=== PATIENT | female | born 1950 | race Caucasian/White ===

== ENCOUNTER 2021-05-16 19:44 | Inpatient (IN) | payer MEDICARE, OTHER, SELFPAY ==
--- NOTE | ~2021-05-16 | XR_ITS ---
EXAMINATION: XR CHEST CLINICAL INFORMATION: Altered mental status COMPARISON: 09/20/2019 TECHNIQUE: Frontal view of the chest was obtained. FINDINGS: Low lung volumes and portable technique crowd the bronchovascular markings. No discrete consolidation. No pleural effusion or pneumothorax. Normal heart size and pulmonary vascularity. No acute or suspicious osseous abnormalities. XR/XR chest 1V IMPRESSION: No infiltrate or focal consolidation
--- NOTE | ~2021-05-16 | MR_ITS ---
EXAMINATION: MR BRAIN WITHOUT CONTRAST CLINICAL INFORMATION: Frontotemporal dementia. COMPARISON: Brain MRI from 06/20/2019. TECHNIQUE: MRI of the brain was obtained using routine sequences without contrast. FINDINGS: No focal restricted diffusion is demonstrated to suggest acute or subacute cerebral ischemia. No evidence of acute or chronic hemorrhagic products on heme-sensitive imaging. Scattered periventricular and deep white matter T2 FLAIR hyperintensities consistent with mild underlying microangiopathy. Proportional prominence of the ventricles and sulcal spaces without evidence of obstructive hydrocephalus. Volume loss again qualitatively involves the frontal and temporal lobes more so than the occipitoparietal lobes. No abnormal mass effect. No midline shift. Normal appearance of the pituitary gland. No abnormalities of the posterior fossa with normal appearance of the brainstem and cerebellum. Normal positioning of the cerebellar tonsils. Normal arterial and venous vascular flow voids are present. Normal, homogeneous marrow signal. Degenerative spondyloarthropathy of the visualized upper cervical spine. Mild mucosal thickening of the paranasal sinuses. No signal abnormalities within the mastoids. MR/MR head/brain wo con IMPRESSION: 1. No acute intracranial abnormalities. 2. Mild underlying microangiopathy. 3. Generalized cerebral volume loss again qualitatively involves the frontal and temporal lobes more so than the occipitoparietal lobes. If clinically indicated, this could be qualitatively characterized/followed with dedicated Neuro[employer] imaging.
[2021-05-16 19:47] VITALS: BP 131/67; PULSE 88; RESP 19; TEMP 36.6; O2SAT 96; BMI 29.2
--- NOTE | 2021-05-16 21:15 | ECG_ITS ---
Test Reason : HEADACHE Blood Pressure : / mmHG Vent. Rate : 078 BPM Atrial Rate : 078 BPM P-R Int : 136 ms QRS Dur : 144 ms QT Int : 438 ms P-R-T Axes : 065 082 025 degrees QTc Int : 499 ms Normal sinus rhythm Right bundle branch block Abnormal ECG When compared with ECG of 18-OCT-2017 08:16, T wave inversion now evident in Inferior leads QT has lengthened Referred By: Chelo Carvajal Electronically Signed By:BOBBY AVENDAÑO
--- NOTE | 2021-05-16 21:28 | PC.NURSE ---
IV established, all labs obtained. automotive specialty technician at bedside for EKG and second set of BCX. Daughter at bedside, awaiting primary MD toribio. VSS.
[2021-05-16 21:29] VITALS: BP 116/47; PULSE 80; RESP 20
[2021-05-16 21:35] LABS: MANUAL DIFF FLAG NO
[2021-05-16 21:36] LABS: Basophils Percent Auto 0.3 % (0-2); Eosinophils Absolute Auto 0.1 X10*3/uL (0.0-0.4); Eosinophils Percent Auto 1.1 % (0-4); Hematocrit 39.9 % (37-47); Hemoglobin 13.7 g/dl (12.0-16.0); Imm Gran Abs Auto 0.04 X10*3/uL (0.00-0.03); Imm Gran Pct Auto 0.3 % (0.0-0.4); Lymphocytes Absolute Auto 2.7 X10*3/uL (1.2-4.9); Lymphocytes Percent Auto 22.2 % (20-40); Mean Corpuscular HGB Conc 34.3 g/dl (31.0-35.0); Mean Corpuscular Volume 84.5 fL (80-98); Mean Platelet Volume 9.3 fL (9.4-12.3); Monocytes Absolute Auto 0.8 X10*3/uL (0.1-1.2); Monocytes Percent Auto 6.8 % (2-11); Neutrophils Absolute Auto 8.3 X10*3/uL (2.0-8.3); Neutrophils Percent Auto 69.3 % (45-73); Platelet Count 193 X10*3/uL (160-400); Red Blood Count 4.72 X10*6/uL (4.20-5.50); Red Cell Distribution Width 14.4 % (11.0-16.0)
[2021-05-16 21:37] LABS: Glucose Urine UA NEG (NEG); Leukocyte Esterase Urine 2+ (NEG); Nitrite Urine NEG (NEG); Specific Gravity - Urine 1.025 (1.005-1.025); UACC Culture Trigger YES; Urine Blood TRACE (NEG); Urine Ketones NEG (NEG); Urine Protein 2+ MG/DL (NEG-TRACE)
[2021-05-16 21:38] LABS: Appearance Urine HAZY; Color Urine YELLOW
[2021-05-16 21:44] LABS: Bacteria Urine 2+ /LPF; RBC Urine 0-2 /HPF (0); Squamous Epithelial Cell Urine 3+ /LPF
[2021-05-16 21:45] LABS: INTERNATIONAL NORM RATIO 1.2 (0.9-1.1); Prothrombin Time 13.2 SEC (9.9-13.0)
[2021-05-16 21:54] LABS: Lactic Acid 1.6 mmol/L (0.5-2.0)
[2021-05-16 21:55] VITALS: BP 140/70; PULSE 80; RESP 22; O2SAT 94
[2021-05-16 22:01] LABS: Alanine Aminotransferase 67 U/L (0-31); Albumin Level 4.6 g/dL (3.5-5.0); Alkaline Phosphatase 120 U/L (39-117); Anion Gap 18 (12-20); Aspartate Amino Transferase 82 U/L (5-31); Bilirubin Total 0.9 mg/dL (0.0-1.0); Blood Urea Nitrogen 14 mg/dL (9-16); Calcium 10.1 mg/dL (8.4-10.2); Carbon Dioxide 23 mmol/L (22-29); Chloride 101 mmol/L (96-108); Creatinine Clr Calc Pharmacy 59.5; Estimated Glomerular Filt Rate > 60; Glucose Random 181 mg/dL (60-115); Potassium 4.3 mmol/L (3.3-5.1); Sodium 138 mmol/L (135-145)
--- NOTE | 2021-05-16 22:13 | ED.PSYCH ---
HPI - Psych General Chief Complaint: Altered Mental Status Stated Complaint: change in mental status Time Seen by Provider: 05/16/21 21:15 Source: patient and family (Daughter) Mode of arrival: ambulatory History of Present Illness HPI Narrative: 71-year-old female with history of schizophrenia is brought in by her family for onset of auditory hallucinations that have been ongoing and worsening over the past week. Patient denies any suicidal homicidal ideation and states that this has happened before. She states that there have been no recent medication changes since January and at that time amitriptyline have been added for pain. Otherwise, patient states that the voices are not telling her to kill herself, however in discussion with the daughter at bedside the event that prompted them to bring patent the patient in is that she had driven over to her daughter's house because she had thought the neighbor had her daughter tied up and was holding her hostage. This followed an incident last night where she called 911 because the neighbor had told her that her was having a heart attack and laying on the floor. She denies any visual hallucinations and denies any recent fever, chills, GI or symptoms and states that she has been eating and drinking normally as well as denying any shortness of breath or chest pain/palpitations. Related Data Allergies Allergy/AdvReac Type Severity Reaction Status Date / Time dicyclomine [From Bentyl] Allergy Mild 5 BLUE Verified 05/16/21 19:46 LINES ACROSS ABDOMEN prochlorperazine Allergy Mild TONGUE Verified 05/16/21 19:46 [From Compazine] SWELL, LOCK JAW Sulfa (Sulfonamide Allergy Mild RASH, hives Verified 05/16/21 19:46 Antibiotics) Compazine Allergy Unknown oral Verified 05/16/21 19:46 swelling shellfish Allergy Unknown diarrhea, Verified 05/16/21 19:46 abd pain Shellfish Allergy Mild DIARRHEA,SW Uncoded 06/04/20 15:05 TOI Review of Systems Review of Systems: Pertinent positives and negatives As stated in HPI 10 point review of systems is otherwise negative. PMFSH Past Medical History Source: nursing notes reviewed Medical History Anxiety Depression High cholesterol Hypertension Hypothyroid Surgical History H/O neck surgery Previous back surgery S/P appendectomy Social History Social History Advance Directives: No Advance Directives Information Provided: No Physical Exam Vital Signs: Vital Signs: Last Vital Signs Temp 97.8 F 05/16/21 19:47 Pulse 80 05/16/21 21:55 Resp 22 H 05/16/21 21:55 BP 140/70 H 05/16/21 21:55 Pulse Ox 94 05/16/21 21:55 Body Mass Index 29.2 VITAL SIGNS: Reviewed. GENERAL: Well developed, well nourished, in no acute distress. HEAD: Normocephalic/atraumatic EYES: PERRLA, EOMI OROPHARYNX: no oral lesions noted, posterior pharynx clear LUNGS: Normal breath sounds. No adventitious sounds or accessory muscle use. SpO2<94> CARDIOVASCULAR: Regular rate and rhythm without noted murmurs, no JVD or lower extremity edema. ABDOMEN: Soft, non-tender, non-distended with bowel sounds. MUSCULOSKELETAL: No tenderness, deformities, or effusions noted on gross inspection. EXTREMITIES: No cyanosis, clubbing or edema. SKIN: Inspection of the skin reveals no rashe NEUROLOGIC: Alert and oriented x 4. Strength and sensation to light touch were grossly intact x 4. PSYCH: Normal affect, not anxious, logical thought process Course Course Course Narrative: This is a 71-year-old female with history and clinical presentation most consistent with decompensated schizophrenia with auditory hallucinations and although I doubt infection or metabolic/medication interaction will evaluate for this and after these have been assessed will consult care team for further evaluation. Review of all investigations significant for UTI and patient received antibiotics and will be evaluated by the care team, but they state patient needs to be treated for 24 hours to appropriately assess for contribution of the infection to patient's auditory hallucinations. Patient and family have been informed of all findings and plan. Reevaluation(s) Reevaluation #1: Patient placed in physician observation because the patient needed more time for CARE team evaluation At the time observation was started the patient's vital signs were stable, patient is alert and oriented, neuro: Nonfocal, CV RRR, lungs clear Time: 22:48 MDM - Psych Lab Data Result diagrams: 05/16/21 21:24 05/16/21 21:24 Labs: Lab Results 0805/16/21 05/16/21 Range/Units 21:24 21:24 21:24 WBC 12.0 H (4.8-10.8) X10*3/uL RBC 4.72 (4.20-5.50) X10*6/uL Hgb 13.7 (12.0-16.0) g/dl Hct 39.9 (37-47) % MCV 84.5 (80-98) fL MCH 29.0 (27.0-33.0) pg MCHC 34.3 (31.0-35.0) g/dl RDW 14.4 (11.0-16.0) % Plt Count 193 (160-400) X10*3/uL MPV 9.3 L (9.4-12.3) fL Immature Gran % (Auto) 0.3 (0.0-0.4) % Neut % (Auto) 69.3 (45-73) % Lymph % (Auto) 22.2 (20-40) % [place] % (Auto) 6.8 (2-11) % Eos % (Auto) 1.1 (0-4) % Baso % (Auto) 0.3 (0-2) % Lymph # (Auto) 2.7 (1.2-4.9) X10*3/uL [place] # (Auto) 0.8 (0.1-1.2) X10*3/uL Eos # (Auto) 0.1 (0.0-0.4) X10*3/uL Baso # (Auto) 0.0 (0.0-0.2) X10*3/uL Abs Immat Gran (auto) 0.04 H (0.00-0.03) X10*3/uL Absolute Neuts (auto) 8.3 (2.0-8.3) X10*3/uL Absolute Nucleated RBC 0.000 (0.0-0.012) X10*3/uL Nucleated RBC % (auto) 0.0 (0.0-0.2) /100WBC PT (9.9-13.0) SEC INR (0.9-1.1) Sodium 138 (135-145) mmol/L Potassium 4.3 (3.3-5.1) mmol/L Chloride 101 (96-108) mmol/L Carbon Dioxide 23 (22-29) mmol/L Anion Gap 18 (12-20) BUN 14 (9-16) mg/dL Creatinine 0.84 (0.5-1.4) mg/dL Estim Creat Clear Calc 59.5 Estimated GFR > 60 Random Glucose 181 H (60-115) mg/dL Lactic Acid (0.5-2.0) mmol/L Calcium 10.1 (8.4-10.2) mg/dL Total Bilirubin 0.9 (0.0-1.0) mg/dL AST 82 H (5-31) U/L ALT 67 H (0-31) U/L Alkaline Phosphatase 120 H (39-117) U/L Total Protein 8.0 (6.5-8.0) g/dL Albumin 4.6 (3.5-5.0) g/dL Urine Color YELLOW Urine Appearance HAZY Urine pH 6.0 (5.0-8.0) Ur Specific [place] 1.025 (1.005-1.025) Urine Protein 2+ H (NEG-TRACE) MG/DL Urine Glucose (UA) NEG (NEG) MG/DL Urine Ketones NEG (NEG) MG/DL Urine Blood TRACE (NEG) Urine Nitrite NEG (NEG) Ur Leukocyte Esterase 2+ H (NEG) Urine RBC 0-2 (0) /HPF Urine WBC 15-29 H (0-4) /HPF Ur Squamous Epith Cells 3+ /LPF Urine Bacteria 2+ /LPF COVID-19 (ANTIONETTE) (Negative) COVID-19 Clin Com 05/16/21 05/16/21 05/16/21 Range/Units 21:24 21:24 22:46 WBC (4.8-10.8) X10*3/uL RBC (4.20-5.50) X10*6/uL Hgb (12.0-16.0) g/dl Hct (37-47) % MCV (80-98) fL MCH (27.0-33.0) pg MCHC (31.0-35.0) g/dl RDW (11.0-16.0) % Plt Count (160-400) X10*3/uL MPV (9.4-12.3) fL Immature Gran % (Auto) (0.0-0.4) % Neut % (Auto) (45-73) % Lymph % (Auto) (20-40) % [place] % (Auto) (2-11) % Eos % (Auto) (0-4) % Baso % (Auto) (0-2) % Lymph # (Auto) (1.2-4.9) X10*3/uL [place] # (Auto) (0.1-1.2) X10*3/uL Eos # (Auto) (0.0-0.4) X10*3/uL Baso # (Auto) (0.0-0.2) X10*3/uL Abs Immat Gran (auto) (0.00-0.03) X10*3/uL Absolute Neuts (auto) (2.0-8.3) X10*3/uL Absolute Nucleated RBC (0.0-0.012) X10*3/uL Nucleated RBC % (auto) (0.0-0.2) /100WBC PT 13.2 H (9.9-13.0) SEC INR 1.2 H (0.9-1.1) Sodium (135-145) mmol/L Potassium (3.3-5.1) mmol/L Chloride (96-108) mmol/L Carbon Dioxide (22-29) mmol/L Anion Gap (12-20) BUN (9-16) mg/dL Creatinine (0.5-1.4) mg/dL Estim Creat Clear Calc Estimated GFR Random Glucose (60-115) mg/dL Lactic Acid 1.6 (0.5-2.0) mmol/L Calcium (8.4-10.2) mg/dL Total Bilirubin (0.0-1.0) mg/dL AST (5-31) U/L ALT (0-31) U/L Alkaline Phosphatase (39-117) U/L Total Protein (6.5-8.0) g/dL Albumin (3.5-5.0) g/dL Urine Color Urine Appearance Urine pH (5.0-8.0) Ur Specific [place] (1.005-1.025) Urine Protein (NEG-TRACE) MG/DL Urine Glucose (UA) (NEG) MG/DL Urine Ketones (NEG) MG/DL Urine Blood (NEG) Urine Nitrite (NEG) Ur Leukocyte Esterase (NEG) Urine RBC (0) /HPF Urine WBC (0-4) /HPF Ur Squamous Epith Cells /LPF Urine Bacteria /LPF COVID-19 (ANTIONETTE) Negative (Negative) COVID-19 Clin Com See Note ECG Data Attestation: I personally reviewed and interpreted this ECG as follows: Prior ECG tracings: available for review (10/18/2017 no acute changes on comparison) Interpretation: Normal sinus rhythm, HR-78, RBBB, no STEMI, AR/QT are within normal limits. Discharge Plan Discharge Clinical Impression: Schizophrenia, Psychosis, Acute UTI
[2021-05-16] MEDS: cephALEXin 500 MG CAPSULE PO (22:44)
--- NOTE | 2021-05-16 22:46 | PC.NURSE ---
Pt medicated per NOV. Covid swab obtained. Pt ambulating to the bathroom with a steady gait.
[2021-05-16 23:04] LABS: COVID-19 Test Negative (Negative)
--- NOTE | 2021-05-16 23:31 | MHC.CARE ---
CARE team consult received for 71 year old female who was brought to ED by family for a psychiatric eval. She endorsed experiencing auditory hallucinations, denied them being persecutory or command in nature, and reported that lots of craziness happened earlier in the day before arriving to the ED. Per family report she has been experiencing paranoid delusions about her neighbors, more notably over the past week or so. Her stated that he is concerned about her current presentation and is hoping that she'll be admitted for treatment. 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 She stated that she began amitriptyline in early January, there have been no other recent changes in her medications, and she is compliant with taking them as prescribed. She lives with her and their daughter is close by and involved. Pt and her requested that her outpatient psychiatrist, Amanda Farias, be contacted re: her ED presentation. 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 Anthony Farias, who reported that she is out of the office until after and to consult with Dr. Tyron Root if there are any questions or additional information needed. Pt has a UTI and has been started on cephalexin. She is not medically cleared for evaluation at this time. Psych consult has been requested for clinical impression and recommendation. Pt and her are aware of the plan of care.
[2021-05-17] VITALS (8 sets, daily range): BP systolic 118–159; BP diastolic 59–79; PULSE 81–93; RESP 16–20; TEMP 37.1–37.4; O2SAT 95–96
[2021-05-17] MEDS: amLODIPine Besylate 5 MG TABLET PO (08:00)
[2021-05-17] MEDS: Ezetimibe 10 MG TABLET PO (08:00)
[2021-05-17] MEDS: buPROPion HCl XL 150 MG TAB.ER.24H PO (08:01)
[2021-05-17] MEDS: Loratadine 10 MG TABLET PO (08:01)
[2021-05-17] MEDS: cephALEXin 500 MG CAPSULE PO ×2 (08:01→20:18)
[2021-05-17] MEDS: PARoxetine HCL 20 MG TABLET PO (08:02)
[2021-05-17] MEDS: Levothyroxine Sodium 175 MCG TABLET PO (08:02)
[2021-05-17] MEDS: atenoloL 100 MG TABLET PO (08:02)
[2021-05-17] MEDS: Pravastatin Sodium 80 MG TABLET PO (08:02)
--- NOTE | 2021-05-17 09:42 | P.CNPS_ITS ---
History of Present Illness Date of Service: 05/17/21 Chief Complaint: change in mental status Reason for Consult: diagnosis Sources of Information: chart reviewed and crisis/core team assessment reviewed HPI Narrative: h/o depression with psychotic Fx. BIB family to ED for recent uptick in psychotic Sx. UTI diagnosed. per collateral from care team, pt's family have noted neurovegetative Sx of depression and increased psychotic Sx for at least the past month, predating the start of UTI. Past Psychiatric History: MDD with psychotic Fx Medical Evaluation Reviewed: Yes [facility] Medical History (Updated 05/17/21 @ 09:45 by Tmi Lindo) Anxiety Depression High cholesterol Hypertension Hypothyroid Schizophrenia Surgical History H/O neck surgery Previous back surgery S/P appendectomy Diagnostics Vital Signs (24Hr): Vital Signs - 24 hr 05/16/21 19:47 05/16/21 21:29 05/16/21 21:55 Temperature 97.8 F Pulse Rate 88 80 80 Respiratory Rate 19 20 22 H Blood Pressure 131/67 116/47 L 140/70 H Pulse Oximetry 96 94 05/17/21 00:00 05/17/21 02:19 05/17/21 04:33 Temperature Pulse Rate Respiratory Rate 20 16 16 Blood Pressure Pulse Oximetry 05/17/21 05:46 05/17/21 08:00 05/17/21 08:02 Temperature Pulse Rate 93 90 Respiratory Rate 20 Blood Pressure 159/79 H 159/79 H Pulse Oximetry Body Mass Index 29.2 Labs Results: 05/16/21 21:24 05/16/21 21:24 Labs: Laboratory Results - last 48 hr 05/16/21 05/16/21 05/16/21 21:24 21:24 21:24 WBC 12.0 H RBC 4.72 Hgb 13.7 Hct 39.9 MCV 84.5 MCH 29.0 MCHC 34.3 RDW 14.4 Plt Count 193 MPV 9.3 L Immature Gran % (Auto) 0.3 Neut % (Auto) 69.3 Lymph % (Auto) 22.2 [place] % (Auto) 6.8 Eos % (Auto) 1.1 Baso % (Auto) 0.3 Lymph # (Auto) 2.7 [place] # (Auto) 0.8 Eos # (Auto) 0.1 Baso # (Auto) 0.0 Abs Immat Gran (auto) 0.04 H Absolute Neuts (auto) 8.3 Absolute Nucleated RBC 0.000 Nucleated RBC % (auto) 0.0 PT INR Sodium 138 Potassium 4.3 Chloride 101 Carbon Dioxide 23 Anion Gap 18 BUN 14 Creatinine 0.84 Estim Creat Clear Calc 59.5 Estimated GFR > 60 Random Glucose 181 H Lactic Acid Calcium 10.1 Total Bilirubin 0.9 AST 82 H ALT 67 H Alkaline Phosphatase 120 H Total Protein 8.0 Albumin 4.6 Urine Color YELLOW Urine Appearance HAZY Urine pH 6.0 Ur Specific [place] 1.025 Urine Protein 2+ H Urine Glucose (UA) NEG Urine Ketones NEG Urine Blood TRACE Urine Nitrite NEG Ur Leukocyte Esterase 2+ H Urine RBC 0-2 Urine WBC 15-29 H Ur Squamous Epith Cells 3+ Urine Bacteria 2+ COVID-19 (ANTIONETTE) COVID-19 REBIScan 05/16/21 05/16/21 05/16/21 21:24 21:24 22:46 WBC RBC Hgb Hct MCV MCH MCHC RDW Plt Count MPV Immature Gran % (Auto) Neut % (Auto) Lymph % (Auto) [place] % (Auto) Eos % (Auto) Baso % (Auto) Lymph # (Auto) [place] # (Auto) Eos # (Auto) Baso # (Auto) Abs Immat Gran (auto) Absolute Neuts (auto) Absolute Nucleated RBC Nucleated RBC % (auto) PT 13.2 H INR 1.2 H Sodium Potassium Chloride Carbon Dioxide Anion Gap BUN Creatinine Estim Creat Clear Calc Estimated GFR Random Glucose Lactic Acid 1.6 Calcium Total Bilirubin AST ALT Alkaline Phosphatase Total Protein Albumin Urine Color Urine Appearance Urine pH Ur Specific [place] Urine Protein Urine Glucose (UA) Urine Ketones Urine Blood Urine Nitrite Ur Leukocyte Esterase Urine RBC Urine WBC Ur Squamous Epith Cells Urine Bacteria COVID-19 (ANTIONETTE) Negative COVID-19 [email or web address] Com See Note Imaging Radiology Impressions: ITS Impressions Chest X-Ray 05/16/21 21:15 IMPRESSION: No infiltrate or focal consolidation Medications Medications Current Medications Generic Name Dose Route Start Last Admin Trade Name Freq PRN Reason Stop Dose Admin Amitriptyline HCl 25 mg 05/17/21 21:00 Amitriptyline Hcl 25 Mg Tablet PO BEDTIME BRIA Amlodipine Besylate 5 mg 05/17/21 09:00 05/17/21 08:00 Amlodipine Besylate 5 Mg Tablet PO 5 mg DAILY BRIA Administration Protocol Atenolol 100 mg 05/17/21 09:00 05/17/21 08:02 Atenolol 100 Mg Tablet PO 100 mg DAILY BRIA Administration Protocol Bupropion HCl 150 mg 05/17/21 09:00 05/17/21 08:01 Bupropion Hcl Xl 150 Mg Tab.Er.24h PO 150 mg DAILY BRIA Administration Cephalexin HCl 500 mg 05/17/21 09:00 05/17/21 08:01 Cephalexin 500 Mg Capsule PO 05/22/21 08:59 500 mg Q12H BRIA Administration Clonazepam 1 mg 05/17/21 07:00 Clonazepam 1 Mg Tablet PO TID PRN anxiety Ezetimibe 10 mg 05/17/21 09:00 05/17/21 08:00 Ezetimibe 10 Mg Tablet PO 10 mg DAILY BRIA Administration Levothyroxine Sodium 175 mcg 05/17/21 09:00 05/17/21 08:02 Levothyroxine Sodium 175 Mcg Tablet PO 175 mcg DAILY BRIA Administration Loratadine 10 mg 05/17/21 09:00 05/17/21 08:01 Loratadine 10 Mg Tablet PO 10 mg DAILY BRIA Administration Non-Formulary Medication 1 appl 05/17/21 09:00 Diclofenac Sodium TOPICAL BID [facility] Paroxetine HCl 20 mg 05/17/21 09:00 05/17/21 08:02 Paroxetine Hcl 20 Mg Tablet PO 20 mg DAILY BRIA Administration Pravastatin Sodium 80 mg 05/17/21 09:00 05/17/21 08:02 Pravastatin Sodium 80 Mg Tablet PO 80 mg DAILY BRIA Administration Allergies Allergies Allergy/AdvReac Type Severity Reaction Status Date / Time dicyclomine [From Bentyl] Allergy Mild 5 BLUE Verified 05/16/21 19:46 LINES ACROSS ABDOMEN prochlorperazine Allergy Mild TONGUE Verified 05/16/21 19:46 [From Compazine] SWELL, LOCK JAW Sulfa (Sulfonamide Allergy Mild RASH, hives Verified 05/16/21 19:46 Antibiotics) Compazine Allergy Unknown oral Verified 05/16/21 19:46 swelling shellfish Allergy Unknown diarrhea, Verified 05/16/21 19:46 abd pain Shellfish Allergy Mild DIARRHEA,SW Uncoded 06/04/20 15:05 TOI Assessment & Plan Assessment & Plan (1) Depression: Status: Acute Code(s): F32.9 - Major depressive disorder, single episode, unspecified Assessment and Plan: with psychotic Fx. continue current mgmt with anti-depressants. would start low-dose neuroleptic such as haldol 2 BID if pt will not be moved to an inpatient psych unit in the near future. (2) Psychosis: Status: Acute Code(s): F29 - Unspecified psychosis not due to a substance or known physiological condition Assessment and Plan: see above. this is an aspect of a known diagnosis of MDD with psychotic Fx, possibly exacerbated by UTI. (3) Acute UTI: Status: Acute Code(s): N39.0 - Urinary tract infection, site not specified Assessment and Plan: treat as directed by ED physician Assessment and Plan: admit to inpatient psych unit. treat infection. start haldol 2 BID unless pt is to be admitted to psych unit sometime this morning. Greater than 50% of the session was spent on counseling and/or coordination of care
--- NOTE | 2021-05-17 15:16 | MHC.CARE ---
Pt is a CARE Team Older Adult bed search at this time. Bed search exhuasted for today
[2021-05-17] MEDS: Amitriptyline HCl 25 MG TABLET PO (20:18)
[2021-05-18] MEDS: Acetaminophen 325 MG TABLET 650 MG PO ×3 (00:23→21:48)
[2021-05-18] MEDS: clonazePAM 1 MG TABLET PO ×3 (03:06→21:49)
--- NOTE | 2021-05-18 06:37 | PC.NURSE ---
Patient slept through the night, patient was up x 2 briefly, once for right hip pain/administered Tylenol 650 mg with + effect, patient seems mildly anxious/restless/PRN Klonopin 1mg administered as ordered with good effect, patient currently sleeping, no distress observed/reported, behavior appropriate, VSS, Patient + for UTI/Keflex order in placed, compliant with medication, disposition per care team section 12 inpatient bed search, will continue to monitor.
[2021-05-18 08:57] VITALS: BP 162/89; PULSE 95; RESP 16; TEMP 36.7; O2SAT 94
[2021-05-18 09:19] VITALS: BP 162/89; PULSE 95
[2021-05-18] MEDS: Ezetimibe 10 MG TABLET PO (09:19)
[2021-05-18] MEDS: atenoloL 100 MG TABLET PO (09:19)
[2021-05-18] MEDS: amLODIPine Besylate 5 MG TABLET PO (09:19)
[2021-05-18] MEDS: buPROPion HCl XL 150 MG TAB.ER.24H PO (09:19)
[2021-05-18] MEDS: Loratadine 10 MG TABLET PO (09:19)
[2021-05-18] MEDS: PARoxetine HCL 20 MG TABLET PO (09:19)
[2021-05-18] MEDS: Pravastatin Sodium 80 MG TABLET PO (09:19)
[2021-05-18] MEDS: cephALEXin 500 MG CAPSULE PO ×2 (09:19→20:31)
[2021-05-18] MEDS: Levothyroxine Sodium 175 MCG TABLET PO (09:19)
--- NOTE | 2021-05-18 14:08 | MHC.CARE ---
CARE Team meets with patient to present CV. Pt is somewhat reluctant to sign, as she states that she is feeling much better. Pt denies SI/HI and AVH. She is alert and oriented x4, and appears to understand the CV. She is well engaged and friendly, speaking about her cats and solomon. She identifies that having sleep and rest has improved her mental state, and she has insight that she was experiencing increased symptoms when she first arrived to the ED. Pt initially presented to the ED with a UTI, and has been treated with antibiotics. She agrees to sign the CV, but expresses that she does not feel that she needs more then a few days admission to S1. CARE Team will communicate with attending on S1.
[2021-05-18] MEDS: Amitriptyline HCl 25 MG TABLET PO (20:31)
[2021-05-18 20:37] VITALS: BP 148/70; PULSE 79; RESP 16; O2SAT 93
[2021-05-18 21:42] VITALS: BMI 31.1
--- NOTE | 2021-05-19 02:04 | PC.NURSE ---
71 year old female arrived on unit from the ED after displaying signs of depression with psychotic features at home. CAOx4, calm, cooperative, and pleasant. PT is currently being treated for UTI. PT admits that her thoughts and behaviors prior to coming to the hospital were inappropriate, but stated they seemed very relevant to her at the time. PT currently denies any paranoid or fearful thoughts. Denies AV/VH. Denies feelings of depression, SI, or HI. PT believes that her depression is well managed at home at this time and the medications she is taking are effective. PT complaining of chronic back pain due to neck and back surgeries in the past. PT also stated that she has been diagnosed with sleep apnea but does not use her CPAP machine because her cat will attack the tubing during use at night. PT was anxious about being in the hospital for an extended period of time and the bills that would follow. PT has strong support system at home with .
[2021-05-19] MEDS: Acetaminophen 325 MG TABLET 650 MG PO ×3 (04:52→18:46)
[2021-05-19 06:00] VITALS: BP 137/82; PULSE 90; RESP 18; TEMP 36.6; O2SAT 93
[2021-05-19] MEDS: Ezetimibe 10 MG TABLET PO (08:27)
[2021-05-19] MEDS: Levothyroxine Sodium 175 MCG TABLET PO (08:27)
[2021-05-19 08:28] VITALS: BP 118/64; PULSE 96
[2021-05-19] MEDS: PARoxetine HCL 20 MG TABLET PO (08:28)
[2021-05-19] MEDS: Loratadine 10 MG TABLET PO (08:28)
[2021-05-19] MEDS: Pravastatin Sodium 80 MG TABLET PO (08:28)
[2021-05-19] MEDS: buPROPion HCl XL 150 MG TAB.ER.24H PO (08:28)
[2021-05-19] MEDS: atenoloL 100 MG TABLET PO (08:28)
[2021-05-19] MEDS: cephALEXin 500 MG CAPSULE PO ×2 (08:28→20:10)
[2021-05-19 08:29] VITALS: BP 118/64; PULSE 96
[2021-05-19] MEDS: amLODIPine Besylate 5 MG TABLET PO (08:29)
--- NOTE | 2021-05-19 15:25 | HO.PSYADMNOT ---
HPI Chief Complaint: Depression Sources of Information: patient interviewed HPI Subjective Notes: Conditional Voluntary Healthcare Proxy: No Guardianship: No Medical Problems Affecting Mental Status: Yes (UTI) Narrative: The patient is a 71-year-old female, , mother of 2 adult children, retired clinical pharmacy specialist, living with her with good social support, referred to crisis for exacerbation of depression and auditory hallucinations. The patient carries a diagnosis of depression and she is treated as an outpatient by Dr. Amanda Farias. The patient reported that the current episode started several days ago with poor sleep, increased anxiety, paranoid delusions ?pretty sure that my children were going to be harmed , auditory hallucinations and disorganized behavior. The patient also acknowledged, that recently there was some medication changes for her antidepressants. The social work job titles has contacted the and apparently the patient had been more psychotic and disorganized for the last weeks. Also, according to her , she has being more anxious and with poor short-term memory. At the moment of the interview, the patient denies auditory hallucinations, she was a word that she had a UTI diagnosed on the ED and she is currently treated with antibiotics. She is able to contract for safety and she is willing to continue treatment while inpatient. Past Psychiatric History: MDD with psychotic Fx. She had a previous admission at this facility several years ago for depression with psychotic symptoms. Medical Evaluation Reviewed: Yes [facility] Medical History Anxiety Depression High cholesterol Hypertension Hypothyroid Schizophrenia Surgical History H/O neck surgery Previous back surgery S/P appendectomy Family History: Denies Social History: The patient is a retired clinical pharmacy specialist, she was on disability due to mental illness. She is currently , she is mother of 2 adult children who are independent Substance History: Denies Trauma History: Denies Diagnostics Vital Signs (24Hr): Vital Signs - 24 hr 05/18/21 20:37 05/19/21 06:00 05/19/21 08:28 Temperature 97.8 F Pulse Rate 79 90 96 Respiratory Rate 16 18 Blood Pressure 148/70 H 137/82 118/64 Pulse Oximetry 93 93 05/19/21 08:29 Temperature Pulse Rate 96 Respiratory Rate Blood Pressure 118/64 Pulse Oximetry Body Mass Index 31.1 Labs Results: 05/16/21 21:24 08/29/21 21:24 Imaging Radiology Impressions: ITS Impressions Chest X-Ray 05/16/21 21:15 IMPRESSION: No infiltrate or focal consolidation Meds/Allergies Meds Home Medications Acetaminophen (Acetaminophen 325 Mg Tablet) 650 mg PO Q6H PRN PRN Reason: Headache/Pain Mild Scale (1-3) Last Admin: 05/19/21 13:09 Dose: 650 mg Documented by: Al Hydroxide/Mg Hydroxide (Magnesium Hydrox/Alum Hydrox 30 Ml Oral.Susp) 30 ml PO Q6H PRN PRN Reason: Heartburn/Nausea Amitriptyline HCl (Amitriptyline Hcl 25 Mg Tablet) 25 mg PO BEDTIME [facility] Last Admin: 05/18/21 20:31 Dose: 25 mg Documented by: Amlodipine Besylate (Amlodipine Besylate 5 Mg Tablet) 5 mg PO DAILY [facility]; Protocol Last Admin: 05/19/21 08:29 Dose: 5 mg Documented by: Atenolol (Atenolol 100 Mg Tablet) 100 mg PO DAILY [facility]; Protocol Last Admin: 05/19/21 08:28 Dose: 100 mg Documented by: Bupropion HCl (Bupropion Hcl Xl 150 Mg Tab.Er.24h) 150 mg PO DAILY [facility] Last Admin: 05/19/21 08:28 Dose: 150 mg Documented by: Cephalexin HCl (Cephalexin 500 Mg Capsule) 500 mg PO Q12H [facility] Stop: 05/22/21 08:59 Last Admin: 05/19/21 08:28 Dose: 500 mg Documented by: Clonazepam (Clonazepam 1 Mg Tablet) 1 mg PO TID PRN PRN Reason: anxiety Last Admin: 05/18/21 21:49 Dose: 1 mg Documented by: Ezetimibe (Ezetimibe 10 Mg Tablet) 10 mg PO DAILY [facility] Last Admin: 05/19/21 08:27 Dose: 10 mg Documented by: Levothyroxine Sodium (Levothyroxine Sodium 175 Mcg Tablet) 175 mcg PO DAILY [facility] Last Admin: 05/19/21 08:27 Dose: 175 mcg Documented by: Loratadine (Loratadine 10 Mg Tablet) 10 mg PO DAILY [facility] Last Admin: 05/19/21 08:28 Dose: 10 mg Documented by: Magnesium Hydroxide (Milk Of Magnesia 30 Ml Oral.Susp) 30 ml PO DAILY PRN PRN Reason: Constipation Non-Formulary Medication (Diclofenac Sodium) 1 appl TOPICAL BID [facility] Paroxetine HCl (Paroxetine Hcl 20 Mg Tablet) 20 mg PO DAILY [facility] Last Admin: 05/19/21 08:28 Dose: 20 mg Documented by: Pravastatin Sodium (Pravastatin Sodium 80 Mg Tablet) 80 mg PO DAILY [facility] Last Admin: 05/19/21 08:28 Dose: 80 mg Documented by: Trazodone HCl (Trazodone Hcl 50 Mg Tablet) 50 mg PO BEDTIME PRN PRN Reason: Insomnia Allergies Allergies Allergy/AdvReac Type Severity Reaction Status Date / Time dicyclomine [From Bentyl] Allergy Mild 5 BLUE Verified 05/16/21 19:46 LINES ACROSS ABDOMEN prochlorperazine Allergy Mild TONGUE Verified 05/16/21 19:46 [From Compazine] SWELL, LOCK JAW Sulfa (Sulfonamide Allergy Mild RASH, hives Verified 05/16/21 19:46 Antibiotics) Compazine Allergy Unknown oral Verified 05/16/21 19:46 swelling shellfish Allergy Unknown diarrhea, Verified 05/16/21 19:46 abd pain Shellfish Allergy Mild DIARRHEA,SW Uncoded 06/04/20 15:05 [facility] Mental Status Exam Mental Status Exam Narrative: The patient is on hospital gowns, cooperative and pleasant, with good eye contact. Her mood is dysphoric, her affect is constricted and appropriate. Her thought process is circumstantial but logical. Her thought content is noticeable for poverty of content, circumstantial. At this moment she denies paranoia, delusions or auditory hallucinations. 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 As per her , the patient had been having progressive cognitive decline. Plan 1. Continue with current antidepressants. 2. TSH, new urinalysis and CBC with differential for tomorrow a.m.. 3. Start Zyprexa 2.5 mg p.o. q.h.s. to target psychosis. 4. Gather collateral information. Patient educated on: diagnosis, medication risk/benefits and medical condition Informed Consent: understands Reason for continued inpatient stay Substantial Risk for: harm to self, inability to function, rapid decompensation and med/psych decompensation
[2021-05-19 18:00] VITALS: BP 121/61; PULSE 89; RESP 17; TEMP 36.6; O2SAT 94
[2021-05-19] MEDS: clonazePAM 1 MG TABLET PO (18:46)
[2021-05-19] MEDS: Amitriptyline HCl 25 MG TABLET PO (20:11)
[2021-05-19 20:56] LABS: Appearance Urine HAZY; Color Urine YELLOW; Glucose Urine UA NEG (NEG); Leukocyte Esterase Urine 1+ (NEG); Nitrite Urine NEG (NEG); Specific Gravity - Urine 1.025 (1.005-1.025); Urine Blood NEG (NEG); Urine Ketones NEG (NEG); Urine Protein 1+ MG/DL (NEG-TRACE)
[2021-05-19 21:02] LABS: Bacteria Urine 1+ /LPF; RBC Urine 0 /HPF (0); Squamous Epithelial Cell Urine 1+ /LPF
[2021-05-20] MEDS: Acetaminophen 325 MG TABLET 650 MG PO ×4 (01:34→20:32)
[2021-05-20] MEDS: traZODone HCL 50 MG TABLET PO (01:37)
[2021-05-20] MEDS: Levothyroxine Sodium 175 MCG TABLET PO (06:24)
[2021-05-20 06:54] LABS: MANUAL DIFF FLAG NO
[2021-05-20 06:56] LABS: Basophils Percent Auto 0.4 % (0-2); Eosinophils Absolute Auto 0.2 X10*3/uL (0.0-0.4); Eosinophils Percent Auto 2.4 % (0-4); Hematocrit 35.7 % (37-47); Hemoglobin 12.1 g/dl (12.0-16.0); Imm Gran Abs Auto 0.03 X10*3/uL (0.00-0.03); Imm Gran Pct Auto 0.4 % (0.0-0.4); Lymphocytes Absolute Auto 2.8 X10*3/uL (1.2-4.9); Lymphocytes Percent Auto 36.1 % (20-40); Mean Corpuscular HGB Conc 33.9 g/dl (31.0-35.0); Mean Corpuscular Hemoglobin 29.2 pg (27.0-33.0); Mean Platelet Volume 9.8 fL (9.4-12.3); Monocytes Absolute Auto 0.6 X10*3/uL (0.1-1.2); Monocytes Percent Auto 7.8 % (2-11); Neutrophils Absolute Auto 4.1 X10*3/uL (2.0-8.3); Neutrophils Percent Auto 52.9 % (45-73); Platelet Count 138 X10*3/uL (160-400); Red Blood Count 4.15 X10*6/uL (4.20-5.50); Red Cell Distribution Width 14.3 % (11.0-16.0); White Blood Count 7.8 X10*3/uL (4.8-10.8)
[2021-05-20 07:37] LABS: Thyroid Stimulating Hormone 3.52 uIU/mL (0.32-4.0)
[2021-05-20 09:09] VITALS: BP 136/61; PULSE 92; RESP 18; TEMP 36.1; O2SAT 95
[2021-05-20 09:13] VITALS: BP 136/61; PULSE 92
[2021-05-20] MEDS: amLODIPine Besylate 5 MG TABLET PO (09:13)
[2021-05-20] MEDS: atenoloL 100 MG TABLET PO (09:13)
[2021-05-20] MEDS: buPROPion HCl XL 150 MG TAB.ER.24H PO (09:14)
[2021-05-20] MEDS: Ezetimibe 10 MG TABLET PO (09:15)
[2021-05-20] MEDS: PARoxetine HCL 20 MG TABLET PO (09:15)
[2021-05-20] MEDS: cephALEXin 500 MG CAPSULE PO ×2 (09:15→20:27)
[2021-05-20] MEDS: Loratadine 10 MG TABLET PO (09:15)
[2021-05-20] MEDS: Pravastatin Sodium 80 MG TABLET PO (09:15)
[2021-05-20] MEDS: clonazePAM 1 MG TABLET PO ×3 (09:16→22:46)
[2021-05-20 14:03] VITALS: BMI 31.1
--- NOTE | 2021-05-20 16:19 | P.PNPSI_ITS ---
Subjective Subjective Date of Service: 05/20/21 Reason For Visit: Depression Interim History: Pt seen in her room. Pt reports she thought someone was going to hurt children and hearing voices. She denies any of this now and does not appear internally preoccupied. Pt reports some hx of psychosis several years ago prior to seeing OP psychiatrist Dr. Amanda Farias. Of note, pt started on antibiotic for UTI but actual culture does not show growth. Pt not on antipsychotic but much more clear. Medication Compliance: Yes Side effects from medications: No Attending Groups: Intermittent Review of Systems Acute medical concerns: No Review of Systems Review of Systems Pertinent positives and negatives As stated in HPI 10 point review of systems is otherwise negative. Yes all other systems are reviewed and are negative Mental Status Exam Mental Status Exam Narrative: Appearance: casually groomed, fair hygiene in NAD Behavior:calm psychomotor:no agitation or retardation noted Speech:clear, normal rate/rhythm/volume, spontaneous Thought process:linear Thought content: no signs of psychosis, hoping to go home soon Mood: okay Affect: bright, non labile SI:denies HI:denies VH/AH: none Delusions: none Insight/judgment:fair x 2. Memory/cog: alert, oriented x 3. grossly intact to conversational testing. Diagnostics Vital Signs (24Hr): Vital Signs - 24 hr 05/19/21 18:00 05/20/21 09:09 05/20/21 09:13 Temperature 97.9 F 97.0 F Pulse Rate 89 92 92 Respiratory Rate 17 18 Blood Pressure 121/61 136/61 136/61 Pulse Oximetry 94 95 Body Mass Index 31.1 Labs Results: 05/20/21 06:28 05/16/21 21:24 Labs: Laboratory Results - last 48 hr 05/19/21 05/20/21 05/20/21 20:30 06:28 06:28 WBC 7.8 RBC 4.15 L Hgb 12.1 Hct 35.7 L MCV 86.0 MCH 29.2 MCHC 33.9 RDW 14.3 Plt Count 138 L D MPV 9.8 Immature Gran % (Auto) 0.4 Neut % (Auto) 52.9 Lymph % (Auto) 36.1 [place] % (Auto) 7.8 Eos % (Auto) 2.4 Baso % (Auto) 0.4 Lymph # (Auto) 2.8 [place] # (Auto) 0.6 Eos # (Auto) 0.2 Baso # (Auto) 0.0 Abs Immat Gran (auto) 0.03 Absolute Neuts (auto) 4.1 Absolute Nucleated RBC 0.000 Nucleated RBC % (auto) 0.0 TSH 3.52 Urine Color YELLOW Urine Appearance HAZY Urine pH 6.0 Ur Specific [place] 1.025 Urine Protein 1+ H Urine Glucose (UA) NEG Urine Ketones NEG Urine Blood NEG Urine Nitrite NEG Ur Leukocyte Esterase 1+ H Urine RBC 0 Urine WBC 1-4 Ur Squamous Epith Cells 1+ Urine Bacteria 1+ Imaging Radiology Impressions: ITS Impressions Chest X-Ray 05/16/21 21:15 IMPRESSION: No infiltrate or focal consolidation Medications Medications Current Medications Generic Name Dose Route Start Last Admin Trade Name Freq PRN Reason Stop Dose Admin Acetaminophen 650 mg 05/18/21 21:42 05/20/21 14:50 Acetaminophen 325 Mg Tablet PO 650 mg Q6H PRN Administration Headache/Pain Mild Scale (1-3) Al Hydroxide/Mg Hydroxide 30 ml 05/18/21 21:42 Magnesium Hydrox/Alum Hydrox 30 Ml Oral.Susp PO Q6H PRN Heartburn/Nausea Amitriptyline HCl 25 mg 05/17/21 21:00 05/19/21 20:11 Amitriptyline Hcl 25 Mg Tablet PO 25 mg BEDTIME BRIA Administration Amlodipine Besylate 5 mg 05/17/21 09:00 05/20/21 09:13 Amlodipine Besylate 5 Mg Tablet PO 5 mg DAILY BRIA Administration Protocol Atenolol 100 mg 05/17/21 09:00 05/20/21 09:13 Atenolol 100 Mg Tablet PO 100 mg DAILY BRIA Administration Protocol Bupropion HCl 150 mg 05/17/21 09:00 05/20/21 09:14 Bupropion Hcl Xl 150 Mg Tab.Er.24h PO 150 mg DAILY BRIA Administration Cephalexin HCl 500 mg 05/17/21 09:00 05/20/21 09:15 Cephalexin 500 Mg Capsule PO 05/22/21 08:59 500 mg Q12H BRIA Administration Clonazepam 1 mg 05/17/21 07:00 05/20/21 14:50 Clonazepam 1 Mg Tablet PO 1 mg TID PRN Administration anxiety Ezetimibe 10 mg 05/17/21 09:00 05/20/21 09:15 Ezetimibe 10 Mg Tablet PO 10 mg DAILY BRIA Administration Levothyroxine Sodium 175 mcg 05/20/21 06:00 05/20/21 06:24 Levothyroxine Sodium 175 Mcg Tablet PO 175 mcg DAILY@0600 BRIA Administration Loratadine 10 mg 05/17/21 09:00 05/20/21 09:15 Loratadine 10 Mg Tablet PO 10 mg DAILY BRIA Administration Magnesium Hydroxide 30 ml 05/18/21 21:42 Milk Of Magnesia 30 Ml Oral.Susp PO DAILY PRN Constipation Non-Formulary Medication 1 appl 05/17/21 09:00 Diclofenac Sodium TOPICAL BID BRIA Paroxetine HCl 20 mg 05/17/21 09:00 05/20/21 09:15 Paroxetine Hcl 20 Mg Tablet PO 20 mg DAILY BRIA Administration Pravastatin Sodium 80 mg 05/17/21 09:00 05/20/21 09:15 Pravastatin Sodium 80 Mg Tablet PO 80 mg DAILY BRIA Administration Trazodone HCl 50 mg 05/18/21 21:42 05/20/21 01:37 Trazodone Hcl 50 Mg Tablet PO 50 mg BEDTIME PRN Administration Insomnia Allergies Allergies Allergy/AdvReac Type Severity Reaction Status Date / Time dicyclomine [From Bentyl] Allergy Mild 5 BLUE Verified 05/16/21 19:46 LINES ACROSS ABDOMEN prochlorperazine Allergy Mild TONGUE Verified 05/16/21 19:46 [From Compazine] SWELL, LOCK JAW Sulfa (Sulfonamide Allergy Mild RASH, hives Verified 05/16/21 19:46 Antibiotics) Compazine Allergy Unknown oral Verified 05/16/21 19:46 swelling shellfish Allergy Unknown diarrhea, Verified 05/16/21 19:46 abd pain Shellfish Allergy Mild DIARRHEA,SW Uncoded 06/04/20 15:05 [facility] Assessment & Plan Assessment & Plan (1) Acute UTI: Status: Acute Code(s): N39.0 - Urinary tract infection, site not specified Assessment and Plan: Note urine culture was negative (2) Depression: Status: Acute Code(s): F32.9 - Major depressive disorder, single episode, unspecified (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 As per her , the patient had been having progressive cognitive decline. Plan 1. Continue with current antidepressants. 2. TSH, new urinalysis and CBC with differential for tomorrow a.m.. 3. Start Zyprexa 2.5 mg p.o. q.h.s. to target psychosis. 4. Gather collateral information. Greater than 50% of the session was spent on counseling and/or coordination of care Reason for contiued inpatient stay Substantial Risk for: stable for discharge and rapid decompensation
[2021-05-20 18:00] VITALS: BP 137/64; PULSE 82; TEMP 36.6; O2SAT 95
[2021-05-20] MEDS: Amitriptyline HCl 25 MG TABLET PO (20:27)
[2021-05-21] MEDS: Acetaminophen 325 MG TABLET 650 MG PO ×3 (05:05→20:11)
[2021-05-21] MEDS: Levothyroxine Sodium 175 MCG TABLET PO (05:47)
[2021-05-21 08:05] VITALS: BP 145/70; PULSE 81; RESP 17; TEMP 35.7; O2SAT 97
[2021-05-21 09:21] VITALS: BP 145/70; PULSE 81
[2021-05-21] MEDS: amLODIPine Besylate 5 MG TABLET PO (09:21)
[2021-05-21] MEDS: cephALEXin 500 MG CAPSULE PO ×2 (09:21→20:06)
[2021-05-21] MEDS: buPROPion HCl XL 150 MG TAB.ER.24H PO (09:21)
[2021-05-21 09:22] VITALS: BP 145/70; PULSE 81
[2021-05-21] MEDS: clonazePAM 1 MG TABLET PO ×3 (09:22→20:10)
[2021-05-21] MEDS: PARoxetine HCL 20 MG TABLET PO (09:22)
[2021-05-21] MEDS: Ezetimibe 10 MG TABLET PO (09:22)
[2021-05-21] MEDS: atenoloL 100 MG TABLET PO (09:22)
[2021-05-21] MEDS: Pravastatin Sodium 80 MG TABLET PO (09:22)
[2021-05-21] MEDS: Loratadine 10 MG TABLET PO (09:22)
--- NOTE | 2021-05-21 13:43 | HO.PSYCHPN ---
Subjective Subjective Date of Service: 05/21/21 Reason For Visit: Depression Subjective Notes: Conditional Voluntary Interim History: Nursing staff reported the patient has been guarded. She has reported to the staff that she had a headache for the last 4 days good she has been using Tylenol and Klonopin. Today we had a family meeting, her and her adult daughter attended, and her reported that the patient was poorly functional at baseline, she used to stay in bed most of the time and she used to buy items from the TV and never opened. They also described a progressive irritability in the last years. On interview, the patient denies new symptoms she was very pleasant. She will have a [place] test today. Review of Systems Acute medical concerns: No Blood work came back normal, her urinalysis is improving slowly Medical Review of Systems: unchanged Mental Status Exam Mental Status Exam Patient Appearance: Well Grooomed Patient Orientation: Person Level of Consciousness: Awake Patient Behavior: Appropriate Mood Description: Withdrawn and Constricted Affect Description: Constricted Patient Cognition Impaired: No Ability to Follow Directions: Good Speech Pattern: Appropriate Hallucinations: None Delusions: Not Present Thought Process: Intact Thought Content: positive for Circumstantial Judgement: Fair Diagnostics Vital Signs (24Hr): Vital Signs - 24 hr 05/20/21 18:00 05/21/21 08:05 05/21/21 09:21 Temperature 97.8 F 96.2 F L Pulse Rate 82 81 81 Respiratory Rate 17 Blood Pressure 137/64 145/70 H 145/70 H Pulse Oximetry 95 97 05/21/21 09:22 Temperature Pulse Rate 81 Respiratory Rate Blood Pressure 145/70 H Pulse Oximetry Body Mass Index 31.1 Labs Results: 05/20/21 06:28 05/16/21 21:24 Labs: Laboratory Results - last 48 hr 05/19/21 05/20/21 05/20/21 20:30 06:28 06:28 WBC 7.8 RBC 4.15 L Hgb 12.1 Hct 35.7 L MCV 86.0 MCH 29.2 MCHC 33.9 RDW 14.3 Plt Count 138 L D MPV 9.8 Immature Gran % (Auto) 0.4 Neut % (Auto) 52.9 Lymph % (Auto) 36.1 [place] % (Auto) 7.8 Eos % (Auto) 2.4 Baso % (Auto) 0.4 Lymph # (Auto) 2.8 [place] # (Auto) 0.6 Eos # (Auto) 0.2 Baso # (Auto) 0.0 Abs Immat Gran (auto) 0.03 Absolute Neuts (auto) 4.1 Absolute Nucleated RBC 0.000 Nucleated RBC % (auto) 0.0 TSH 3.52 Urine Color YELLOW Urine Appearance HAZY Urine pH 6.0 Ur Specific [place] 1.025 Urine Protein 1+ H Urine Glucose (UA) NEG Urine Ketones NEG Urine Blood NEG Urine Nitrite NEG Ur Leukocyte Esterase 1+ H Urine RBC 0 Urine WBC 1-4 Ur Squamous Epith Cells 1+ Urine Bacteria 1+ Imaging Radiology Impressions: ITS Impressions Chest X-Ray 05/16/21 21:15 IMPRESSION: No infiltrate or focal consolidation Medications Medications Current Medications Generic Name Dose Route Start Last Admin Trade Name Freq PRN Reason Stop Dose Admin Acetaminophen 650 mg 05/18/21 21:42 05/21/21 05:05 Acetaminophen 325 Mg Tablet PO 650 mg Q6H PRN Administration Headache/Pain Mild Scale (1-3) Al Hydroxide/Mg Hydroxide 30 ml 05/18/21 21:42 Magnesium Hydrox/Alum Hydrox 30 Ml Oral.Susp PO Q6H PRN Heartburn/Nausea Amitriptyline HCl 25 mg 05/17/21 21:00 05/20/21 20:27 Amitriptyline Hcl 25 Mg Tablet PO 25 mg BEDTIME BRIA Administration Amlodipine Besylate 5 mg 05/17/21 09:00 05/21/21 09:21 Amlodipine Besylate 5 Mg Tablet PO 5 mg DAILY BRIA Administration Protocol Atenolol 100 mg 05/17/21 09:00 05/21/21 09:22 Atenolol 100 Mg Tablet PO 100 mg DAILY BRIA Administration Protocol Bupropion HCl 150 mg 05/17/21 09:00 05/21/21 09:21 Bupropion Hcl Xl 150 Mg Tab.Er.24h PO 150 mg DAILY BRIA Administration Cephalexin HCl 500 mg 05/17/21 09:00 05/21/21 09:21 Cephalexin 500 Mg Capsule PO 05/22/21 08:59 500 mg Q12H BRIA Administration Clonazepam 1 mg 05/17/21 07:00 05/21/21 09:22 Clonazepam 1 Mg Tablet PO 1 mg TID PRN Administration anxiety Ezetimibe 10 mg 05/17/21 09:00 05/21/21 09:22 Ezetimibe 10 Mg Tablet PO 10 mg DAILY BRIA Administration Levothyroxine Sodium 175 mcg 05/20/21 06:00 05/21/21 05:47 Levothyroxine Sodium 175 Mcg Tablet PO 175 mcg DAILY@0600 BRIA Administration Loratadine 10 mg 05/17/21 09:00 05/21/21 09:22 Loratadine 10 Mg Tablet PO 10 mg DAILY BRIA Administration Magnesium Hydroxide 30 ml 05/18/21 21:42 Milk Of Magnesia 30 Ml Oral.Susp PO DAILY PRN Constipation Non-Formulary Medication 1 appl 05/17/21 09:00 Diclofenac Sodium TOPICAL BID BRIA Olanzapine 2.5 mg 05/21/21 21:00 Olanzapine 2.5 Mg Tablet PO BEDTIME BRIA Paroxetine HCl 20 mg 05/17/21 09:00 05/21/21 09:22 Paroxetine Hcl 20 Mg Tablet PO 20 mg DAILY BRIA Administration Pravastatin Sodium 80 mg 05/17/21 09:00 05/21/21 09:22 Pravastatin Sodium 80 Mg Tablet PO 80 mg DAILY BRIA Administration Trazodone HCl 50 mg 05/18/21 21:42 05/20/21 01:37 Trazodone Hcl 50 Mg Tablet PO 50 mg BEDTIME PRN Administration Insomnia Allergies Allergies Allergy/AdvReac Type Severity Reaction Status Date / Time dicyclomine [From Bentyl] Allergy Mild 5 BLUE Verified 05/16/21 19:46 LINES ACROSS ABDOMEN prochlorperazine Allergy Mild TONGUE Verified 05/16/21 19:46 [From Compazine] SWELL, LOCK JAW Sulfa (Sulfonamide Allergy Mild RASH, hives Verified 05/16/21 19:46 Antibiotics) Compazine Allergy Unknown oral Verified 05/16/21 19:46 swelling shellfish Allergy Unknown diarrhea, Verified 05/16/21 19:46 abd pain Shellfish Allergy Mild DIARRHEA,SW Uncoded 06/04/20 15:05 [facility] Assessment & Plan Assessment & Plan (1) Acute UTI: Status: Acute Code(s): N39.0 - Urinary tract infection, site not specified Assessment and Plan: Note urine culture was negative (2) Depression: Status: Acute Code(s): F32.9 - Major depressive disorder, single episode, unspecified (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 As per her , the patient had been having progressive cognitive decline. Plan 1. Continue with current antidepressants. 2. TSH, new urinalysis and CBC with differential for tomorrow a.m.. 3. Start Zyprexa 2.5 mg p.o. q.h.s. to target psychosis. 4. Gather collateral information. Greater than 50% of the session was spent on counseling and/or coordination of care Reason for contiued inpatient stay Substantial Risk for: harm to others, inability to function, rapid decompensation and med/psych decompensation
[2021-05-21 18:41] VITALS: BP 166/71; PULSE 82; RESP 17; TEMP 36.4; O2SAT 94
[2021-05-21] MEDS: Amitriptyline HCl 25 MG TABLET PO (20:06)
[2021-05-21] MEDS: OLANZapine 2.5 MG TABLET PO (20:06)
[2021-05-22] MEDS: Levothyroxine Sodium 175 MCG TABLET PO (05:25)
[2021-05-22 06:00] VITALS: BP 132/58; PULSE 91; TEMP 36.8; O2SAT 94
[2021-05-22] MEDS: Acetaminophen 325 MG TABLET 650 MG PO ×3 (06:26→19:50)
[2021-05-22] MEDS: clonazePAM 1 MG TABLET PO (06:26)
[2021-05-22 08:31] VITALS: BP 132/58; PULSE 91
[2021-05-22] MEDS: amLODIPine Besylate 5 MG TABLET PO (08:31)
[2021-05-22 08:32] VITALS: BP 132/58; PULSE 91
[2021-05-22] MEDS: PARoxetine HCL 20 MG TABLET PO (08:32)
[2021-05-22] MEDS: atenoloL 100 MG TABLET PO (08:32)
[2021-05-22] MEDS: buPROPion HCl XL 150 MG TAB.ER.24H PO (08:32)
[2021-05-22] MEDS: Pravastatin Sodium 80 MG TABLET PO (08:32)
[2021-05-22] MEDS: Ezetimibe 10 MG TABLET PO (08:32)
[2021-05-22] MEDS: Loratadine 10 MG TABLET PO (08:32)
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
[2021-05-22] MEDS: Ondansetron ODT 4 MG TAB.RAPDIS TRANSLINGU (14:00)
[2021-05-22] MEDS: OLANZapine 2.5 MG TABLET PO (19:43)
[2021-05-22] MEDS: Amitriptyline HCl 25 MG TABLET PO (19:43)
[2021-05-22 21:05] VITALS: BP 142/64; PULSE 88; RESP 17; TEMP 36.6; O2SAT 94
[2021-05-22] MEDS: traZODone HCL 50 MG TABLET PO (22:43)
[2021-05-23] MEDS: Acetaminophen 325 MG TABLET 650 MG PO ×4 (02:12→21:53)
[2021-05-23 06:00] VITALS: BP 154/67; PULSE 84; TEMP 36.4; O2SAT 92
[2021-05-23] MEDS: Levothyroxine Sodium 175 MCG TABLET PO (06:17)
[2021-05-23] MEDS: Pravastatin Sodium 80 MG TABLET PO (08:23)
[2021-05-23] MEDS: Ezetimibe 10 MG TABLET PO (08:23)
[2021-05-23] MEDS: PARoxetine HCL 20 MG TABLET PO (08:24)
[2021-05-23] MEDS: Loratadine 10 MG TABLET PO (08:24)
[2021-05-23] MEDS: buPROPion HCl XL 150 MG TAB.ER.24H PO (08:24)
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
[2021-05-23 08:28] VITALS: BP 154/67; PULSE 84
[2021-05-23] MEDS: atenoloL 100 MG TABLET PO (08:28)
[2021-05-23] MEDS: amLODIPine Besylate 5 MG TABLET PO (08:28)
[2021-05-23] MEDS: LORazepam 0.5 MG TABLET PO ×2 (14:39→21:53)
[2021-05-23 18:00] VITALS: BP 131/63; PULSE 81; RESP 16; TEMP 37.3; O2SAT 94
[2021-05-23] MEDS: OLANZapine 2.5 MG TABLET PO (20:34)
[2021-05-23] MEDS: traZODone HCL 50 MG TABLET PO ×2 (20:34→21:52)
[2021-05-23 21:45] VITALS: BP 156/65; PULSE 80; RESP 16; TEMP 36.3; O2SAT 95
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
[2021-05-24] MEDS: LORazepam 0.5 MG TABLET PO ×3 (03:53→17:29)
[2021-05-24] MEDS: Acetaminophen 325 MG TABLET 650 MG PO ×3 (03:53→17:33)
[2021-05-24 06:00] VITALS: BP 156/80; PULSE 100; TEMP 36.7; O2SAT 95
[2021-05-24] MEDS: amLODIPine Besylate 5 MG TABLET PO (08:05)
[2021-05-24] MEDS: Levothyroxine Sodium 175 MCG TABLET PO (08:05)
[2021-05-24] MEDS: Ezetimibe 10 MG TABLET PO (08:05)
[2021-05-24] MEDS: risperiDONE 0.25 MG TABLET 0.5 MG PO (08:05)
[2021-05-24] MEDS: PARoxetine HCL 20 MG TABLET PO (08:05)
[2021-05-24] MEDS: Pravastatin Sodium 80 MG TABLET PO (08:05)
[2021-05-24] MEDS: atenoloL 100 MG TABLET PO (08:05)
[2021-05-24] MEDS: Loratadine 10 MG TABLET PO (08:05)
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
[2021-05-24] MEDS: risperiDONE 1 MG TABLET PO (17:29)
--- NOTE | 2021-05-24 19:34 | PC.NURSE ---
The pt became very upset late in the afternoon, stated that she has to go home . Had a discussion with the pt regarding legal status, pt signed a three day notice. The pt came up to the exit doors numerous times today demanding to be let out. At one time the pt slammed her door and refused to let anyone open the door, the barricade door was opened and it was explained to the pt that staff has to able to visualize her for checks every 15 minutes, the pt stated ok . The pt took prn risperidone and ativan and lay down on her bed. At this time the pt is calm and cooperative.
[2021-05-25] MEDS: Levothyroxine Sodium 175 MCG TABLET PO (05:50)
[2021-05-25 06:00] VITALS: BP 142/68; PULSE 113; RESP 16; TEMP 36.2; O2SAT 99
[2021-05-25 07:41] LABS: Anion Gap 14 (12-20); Blood Urea Nitrogen 11 mg/dL (9-16); Calcium 9.4 mg/dL (8.4-10.2); Carbon Dioxide 28 mmol/L (22-29); Chloride 103 mmol/L (96-108); Cholesterol 138 mg/dL; Creatinine Clr Calc Pharmacy 64.5; Estimated Glomerular Filt Rate > 60; Glucose Random 181 mg/dL (60-115); HDL Cholesterol 32 mg/dL; LDL Cholesterol Calculated 74 mg/dl; Potassium 4.3 mmol/L (3.3-5.1); Sodium 141 mmol/L (135-145); Triglycerides 160 mg/dL
[2021-05-25 07:57] LABS: Estimated Average Glucose 200 mg/dL; Hemoglobin A1c % 8.6 %
[2021-05-25 09:40] VITALS: BP 142/68; PULSE 113
[2021-05-25] MEDS: amLODIPine Besylate 5 MG TABLET PO (09:40)
[2021-05-25] MEDS: Pravastatin Sodium 80 MG TABLET PO (09:40)
[2021-05-25 09:41] VITALS: BP 142/68; PULSE 113
[2021-05-25] MEDS: atenoloL 100 MG TABLET PO (09:41)
[2021-05-25] MEDS: Loratadine 10 MG TABLET PO (09:41)
[2021-05-25] MEDS: Ezetimibe 10 MG TABLET PO (09:42)
[2021-05-25] MEDS: risperiDONE 0.25 MG TABLET 0.5 MG PO (09:43)
[2021-05-25] MEDS: PARoxetine HCL 20 MG TABLET PO (09:43)
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
[2021-05-25] MEDS: Loperamide HCl 2 MG CAPSULE PO (13:04)
[2021-05-25] MEDS: Acetaminophen 325 MG TABLET 650 MG PO ×2 (15:51→21:36)
[2021-05-25 17:37] VITALS: BP 143/73; PULSE 81; RESP 18; TEMP 36.6; O2SAT 95
[2021-05-25] MEDS: risperiDONE 1 MG TABLET PO (19:26)
[2021-05-25] MEDS: traZODone HCL 50 MG TABLET PO (21:36)
[2021-05-26 06:00] VITALS: BP 170/87; PULSE 100; RESP 18; TEMP 36.2; O2SAT 96
[2021-05-26] MEDS: Levothyroxine Sodium 175 MCG TABLET PO (06:06)
[2021-05-26] MEDS: risperiDONE 1 MG TABLET PO ×3 (08:18→19:43)
[2021-05-26] MEDS: Ezetimibe 10 MG TABLET PO (08:18)
[2021-05-26] MEDS: Pravastatin Sodium 80 MG TABLET PO (08:19)
[2021-05-26] MEDS: PARoxetine HCL 20 MG TABLET PO (08:19)
[2021-05-26] MEDS: Loratadine 10 MG TABLET PO (08:19)
[2021-05-26 08:20] VITALS: BP 169/80; PULSE 95
[2021-05-26] MEDS: atenoloL 100 MG TABLET PO (08:20)
[2021-05-26 08:21] VITALS: BP 169/80; PULSE 95
[2021-05-26] MEDS: amLODIPine Besylate 5 MG TABLET PO (08:21)
[2021-05-26] MEDS: LORazepam 0.5 MG TABLET PO ×2 (09:51→22:28)
[2021-05-26 10:14] VITALS: BP 169/80; PULSE 102; RESP 18; TEMP 36.6; O2SAT 95
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
[2021-05-26] MEDS: Acetaminophen 325 MG TABLET 650 MG PO ×2 (16:37→22:23)
[2021-05-26 17:26] VITALS: BP 139/67; PULSE 90; RESP 18; TEMP 36.2; O2SAT 95
--- NOTE | 2021-05-27 | ECG_ITS ---
Test Reason : QTC PROLONGATION Blood Pressure : / mmHG Vent. Rate : 089 BPM Atrial Rate : 089 BPM P-R Int : 140 ms QRS Dur : 144 ms QT Int : 396 ms P-R-T Axes : 066 087 037 degrees QTc Int : 481 ms Normal sinus rhythm Right bundle branch block Abnormal ECG When compared with ECG of 16-MAY-2021 21:34, No significant change was found Referred By: Chuy Larson Electronically Signed By:BOBBY AVENDAÑO
[2021-05-27 06:00] VITALS: RESP 20
[2021-05-27] MEDS: Levothyroxine Sodium 175 MCG TABLET PO (06:05)
[2021-05-27 08:44] VITALS: BP 172/77; PULSE 104
[2021-05-27] MEDS: amLODIPine Besylate 5 MG TABLET PO (08:44)
[2021-05-27 08:45] VITALS: BP 172/77; PULSE 104
[2021-05-27] MEDS: PARoxetine HCL 20 MG TABLET PO (08:45)
[2021-05-27] MEDS: atenoloL 100 MG TABLET PO (08:45)
[2021-05-27] MEDS: Pravastatin Sodium 80 MG TABLET PO (08:45)
[2021-05-27] MEDS: Ezetimibe 10 MG TABLET PO (08:45)
[2021-05-27] MEDS: Loratadine 10 MG TABLET PO (08:46)
[2021-05-27] MEDS: risperiDONE 1 MG TABLET PO ×3 (08:46→19:40)
[2021-05-27] MEDS: LORazepam 0.5 MG TABLET PO ×2 (09:42→19:17)
[2021-05-27 09:52] VITALS: BMI 31.1
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
[2021-05-27] MEDS: Loperamide HCl 2 MG CAPSULE PO (16:10)
[2021-05-27 18:00] VITALS: BP 141/65; PULSE 93; RESP 17; TEMP 37.1; O2SAT 94
[2021-05-27] MEDS: Acetaminophen 325 MG TABLET 650 MG PO (19:17)
[2021-05-28] MEDS: Levothyroxine Sodium 175 MCG TABLET PO (05:43)
[2021-05-28 08:42] VITALS: BP 171/73; PULSE 110
[2021-05-28] MEDS: risperiDONE 1 MG TABLET PO ×3 (08:42→19:45)
[2021-05-28] MEDS: PARoxetine HCL 20 MG TABLET PO (08:42)
[2021-05-28] MEDS: Pravastatin Sodium 80 MG TABLET PO (08:42)
[2021-05-28] MEDS: Ezetimibe 10 MG TABLET PO (08:42)
[2021-05-28] MEDS: atenoloL 100 MG TABLET PO (08:42)
[2021-05-28] MEDS: Loratadine 10 MG TABLET PO (08:42)
[2021-05-28] MEDS: amLODIPine Besylate 5 MG TABLET PO (08:42)
[2021-05-28 09:30] VITALS: BP 171/73; PULSE 110; RESP 18; TEMP 36.9; O2SAT 94
[2021-05-28] MEDS: Acetaminophen 325 MG TABLET 650 MG PO ×2 (10:04→21:35)
[2021-05-28] MEDS: Loperamide HCl 2 MG CAPSULE PO (10:05)
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
[2021-05-28] MEDS: LORazepam 0.5 MG TABLET PO ×2 (12:55→16:13)
[2021-05-28 20:17] VITALS: BP 149/67; PULSE 86; RESP 18; TEMP 36.2; O2SAT 95
[2021-05-29] MEDS: Levothyroxine Sodium 175 MCG TABLET PO (05:49)
[2021-05-29 08:58] VITALS: BP 149/65; PULSE 102; RESP 18; O2SAT 94
[2021-05-29 09:00] VITALS: BP 149/65; PULSE 102
[2021-05-29] MEDS: amLODIPine Besylate 5 MG TABLET PO (09:00)
[2021-05-29] MEDS: Pravastatin Sodium 80 MG TABLET PO (09:00)
[2021-05-29] MEDS: Ezetimibe 10 MG TABLET PO (09:00)
[2021-05-29] MEDS: PARoxetine HCL 20 MG TABLET PO (09:01)
[2021-05-29] MEDS: Acetaminophen 325 MG TABLET 650 MG PO (09:01)
[2021-05-29 09:02] VITALS: BP 149/65; PULSE 102
[2021-05-29] MEDS: risperiDONE 1 MG TABLET PO ×3 (09:02→19:52)
[2021-05-29] MEDS: Loratadine 10 MG TABLET PO (09:02)
[2021-05-29] MEDS: LORazepam 0.5 MG TABLET PO ×2 (09:02→17:46)
[2021-05-29] MEDS: atenoloL 100 MG TABLET PO (09:02)
[2021-05-29] MEDS: Loperamide HCl 2 MG CAPSULE PO (09:11)
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
[2021-05-29] MEDS: Magnesium Hydrox/Alum Hydrox 30 ML ORAL.SUSP PO (17:46)
[2021-05-29 18:00] VITALS: BP 160/67; PULSE 88; RESP 20; TEMP 36.1; O2SAT 95
[2021-05-29] MEDS: traZODone HCL 50 MG TABLET PO (20:03)
[2021-05-30] MEDS: Levothyroxine Sodium 175 MCG TABLET PO (05:58)
[2021-05-30 06:00] VITALS: BP 150/72; PULSE 102; TEMP 36.6; O2SAT 94
[2021-05-30] MEDS: risperiDONE 1 MG TABLET PO ×3 (08:32→20:18)
[2021-05-30] MEDS: PARoxetine HCL 20 MG TABLET PO (08:32)
[2021-05-30] MEDS: Loratadine 10 MG TABLET PO (08:32)
[2021-05-30 08:33] VITALS: BP 150/72; PULSE 102
[2021-05-30] MEDS: Ezetimibe 10 MG TABLET PO (08:33)
[2021-05-30] MEDS: atenoloL 100 MG TABLET PO (08:33)
[2021-05-30] MEDS: Pravastatin Sodium 80 MG TABLET PO (08:33)
[2021-05-30 08:44] VITALS: BP 150/72; PULSE 102
[2021-05-30] MEDS: amLODIPine Besylate 5 MG TABLET PO (08:44)
[2021-05-30] MEDS: Acetaminophen 325 MG TABLET 650 MG PO ×2 (10:52→14:41)
[2021-05-30] MEDS: LORazepam 0.5 MG TABLET PO ×3 (10:53→20:18)
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
--- NOTE | 2021-05-30 17:05 | PC.NURSE ---
arrives to unit to meet with Christa and presents at nurse's station with concerns surrounding Christa's thought content. reports Christa is accusing him of being involved with another Pt. on the unit. is visibly upset. This investigative writer sits with Patient and to discuss productive communication techniques, Needs, and Strengths. Christa reports she feels the Hygiene checklist she uses in her room have been very helpful as have been the Purple wipes. She asks if these are items that can be used at home. Christa reports feeling better after regular Tylenol and Ativan doses. This investigative writer speaks with covering provider to have these medications scheduled as Christa has a difficult time advocating for herself. Both she and her note she is diaphoretic with high levels of anxiety at this time. Christa reports she feels Sad about her diagnosis and is tearful. She states her goal is to get back home Christa notes watching movies and spending time on the computer are things she enjoys doing at home. is concerned about leaving Christa home for 2-3 hour periods of time while he runs errands as she has plugged the the continuous churn buttermaker and stove back in and tried to use them while he's been away in the past. We discussed having other opportunities for Christa to engage in outside the home, They both agree she should incorporate Exercise in the form of small walks into her day. is concerned about Christa's spending habits as he reports she has run up a few Thousand dollars on their credit card in jewelry, clothes, and shoes from both online and TV. Both Christa and agree Christa should not have access to the Credit Card anymore and she should only have access to her allowed expense money. Patient and were calmer and thankful for having the talk, they hope to keep working on home safety planning up until discharge.
[2021-05-30 18:00] VITALS: BP 149/74; PULSE 93; RESP 18; TEMP 36.3; O2SAT 95
[2021-05-30] MEDS: Loperamide HCl 2 MG CAPSULE PO (18:21)
[2021-05-31] MEDS: Levothyroxine Sodium 175 MCG TABLET PO (05:46)
[2021-05-31 06:00] VITALS: BP 162/76; PULSE 102; RESP 17; TEMP 36.2; O2SAT 94
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
[2021-05-31] MEDS: Ezetimibe 10 MG TABLET PO (09:18)
[2021-05-31] MEDS: Acetaminophen 325 MG TABLET 650 MG PO ×3 (09:19→21:38)
[2021-05-31] MEDS: LORazepam 0.5 MG TABLET PO ×2 (09:20→20:36)
[2021-05-31 09:21] VITALS: BP 167/76; PULSE 102
[2021-05-31] MEDS: Pravastatin Sodium 80 MG TABLET PO (09:21)
[2021-05-31] MEDS: risperiDONE 1 MG TABLET PO ×3 (09:21→20:36)
[2021-05-31] MEDS: Loratadine 10 MG TABLET PO (09:21)
[2021-05-31] MEDS: atenoloL 100 MG TABLET PO (09:21)
[2021-05-31] MEDS: PARoxetine HCL 20 MG TABLET PO (09:22)
[2021-05-31 09:39] VITALS: BP 162/76; PULSE 102
[2021-05-31] MEDS: amLODIPine Besylate 5 MG TABLET PO (09:39)
[2021-05-31 17:26] VITALS: BP 140/65; PULSE 85; RESP 18; TEMP 37.1; O2SAT 95
[2021-05-31] MEDS: Loperamide HCl 2 MG CAPSULE PO (18:04)
[2021-05-31] MEDS: traZODone HCL 50 MG TABLET PO (21:38)
[2021-06-01] MEDS: Levothyroxine Sodium 175 MCG TABLET PO (05:47)
[2021-06-01 06:00] VITALS: BP 158/69; PULSE 93; RESP 16; TEMP 36.6; O2SAT 94
[2021-06-01] MEDS: Acetaminophen 325 MG TABLET 650 MG PO ×2 (08:16→14:26)
[2021-06-01 08:17] VITALS: BP 158/69; PULSE 93
[2021-06-01] MEDS: amLODIPine Besylate 5 MG TABLET PO (08:17)
[2021-06-01 08:18] VITALS: BP 158/69; PULSE 93
[2021-06-01] MEDS: atenoloL 100 MG TABLET PO (08:18)
[2021-06-01] MEDS: PARoxetine HCL 20 MG TABLET PO (08:19)
[2021-06-01] MEDS: Ezetimibe 10 MG TABLET PO (08:19)
[2021-06-01] MEDS: LORazepam 0.5 MG TABLET PO ×2 (08:19→20:15)
[2021-06-01] MEDS: Loratadine 10 MG TABLET PO (08:19)
[2021-06-01] MEDS: risperiDONE 1 MG TABLET PO ×3 (08:20→20:15)
[2021-06-01] MEDS: Pravastatin Sodium 80 MG TABLET PO (08:20)
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
[2021-06-01 20:31] VITALS: BP 133/61; PULSE 84; RESP 16; TEMP 35.6; O2SAT 95
[2021-06-02 08:29] VITALS: BP 133/61; PULSE 83; RESP 16; TEMP 36.2; O2SAT 95
[2021-06-02] MEDS: Levothyroxine Sodium 175 MCG TABLET PO (08:37)
[2021-06-02] MEDS: Acetaminophen 325 MG TABLET 650 MG PO (08:38)
[2021-06-02 08:39] VITALS: BP 133/61; PULSE 83
[2021-06-02] MEDS: Pravastatin Sodium 80 MG TABLET PO (08:39)
[2021-06-02] MEDS: atenoloL 100 MG TABLET PO (08:39)
[2021-06-02] MEDS: Ezetimibe 10 MG TABLET PO (08:40)
[2021-06-02] MEDS: PARoxetine HCL 20 MG TABLET PO (08:40)
[2021-06-02] MEDS: LORazepam 0.5 MG TABLET PO ×2 (08:40→20:03)
[2021-06-02] MEDS: Loratadine 10 MG TABLET PO (08:40)
[2021-06-02 08:41] VITALS: BP 133/61; PULSE 83
[2021-06-02] MEDS: amLODIPine Besylate 5 MG TABLET PO (08:41)
[2021-06-02] MEDS: risperiDONE 1 MG TABLET PO ×3 (08:41→20:03)
[2021-06-02] MEDS: Loperamide HCl 2 MG CAPSULE PO ×2 (10:05→14:42)
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
[2021-06-02 18:00] VITALS: BP 132/60; PULSE 85; RESP 18; TEMP 36.6; O2SAT 93
[2021-06-03] MEDS: Levothyroxine Sodium 175 MCG TABLET PO (05:14)
[2021-06-03 08:16] VITALS: BP 160/72; PULSE 86; RESP 18; TEMP 36.2; O2SAT 94
[2021-06-03] MEDS: Ezetimibe 10 MG TABLET PO (08:17)
[2021-06-03] MEDS: Acetaminophen 325 MG TABLET 650 MG PO ×2 (08:17→21:22)
[2021-06-03 08:18] VITALS: BP 160/72; PULSE 86
[2021-06-03] MEDS: amLODIPine Besylate 5 MG TABLET PO (08:18)
[2021-06-03] MEDS: Loratadine 10 MG TABLET PO (08:18)
[2021-06-03] MEDS: atenoloL 100 MG TABLET PO (08:18)
[2021-06-03] MEDS: risperiDONE 1 MG TABLET PO ×3 (08:18→21:23)
[2021-06-03] MEDS: Pravastatin Sodium 80 MG TABLET PO (08:18)
[2021-06-03] MEDS: LORazepam 0.5 MG TABLET PO ×3 (08:19→21:22)
[2021-06-03] MEDS: PARoxetine HCL 20 MG TABLET PO (08:19)
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
[2021-06-03 18:34] VITALS: BP 133/65; PULSE 75; RESP 17; TEMP 37; O2SAT 96
[2021-06-04] MEDS: Levothyroxine Sodium 175 MCG TABLET PO (05:22)
[2021-06-04 08:12] VITALS: BP 144/64; PULSE 84; RESP 16; TEMP 36.4; O2SAT 95
[2021-06-04] MEDS: Acetaminophen 325 MG TABLET 650 MG PO ×2 (08:14→12:48)
[2021-06-04 08:15] VITALS: BP 144/64; PULSE 84
[2021-06-04] MEDS: LORazepam 0.5 MG TABLET PO ×2 (08:15→12:43)
[2021-06-04] MEDS: Ezetimibe 10 MG TABLET PO (08:15)
[2021-06-04] MEDS: risperiDONE 1 MG TABLET PO (08:15)
[2021-06-04] MEDS: Loratadine 10 MG TABLET PO (08:15)
[2021-06-04] MEDS: Pravastatin Sodium 80 MG TABLET PO (08:15)
[2021-06-04] MEDS: atenoloL 100 MG TABLET PO (08:15)
[2021-06-04] MEDS: PARoxetine HCL 20 MG TABLET PO (08:15)
[2021-06-04] MEDS: amLODIPine Besylate 5 MG TABLET PO (08:15)
[2021-06-04] MEDS: Loperamide HCl 2 MG CAPSULE PO (08:15)
--- NOTE | 2021-06-04 09:49 | PM.PSYDC ---
DS: Providers Provider Date of Service: 06/04/21 Date of admission: 05/18/21 20:58 Date of discharge: 06/04/21 Primary care physician: Amanda Gallardo MD Attending physician on discharge: Chuy Larson DS: Diagnosis Discharge Diagnosis (1) MDD (major depressive disorder), recurrent episode, moderate: Status: Acute DS: Medications Discharge Medications Home Medications: Home Medications Medication Instructions Recorded Confirmed amitriptyline 25 mg tablet 1 tab PO BEDTIME 05/16/21 05/16/21 amlodipine 5 mg tablet 1 tab PO DAILY 05/16/21 05/16/21 atenolol 100 mg tablet 1 tab PO DAILY 05/16/21 05/16/21 bupropion HCl 150 mg 24 hr tablet, 1 tab PO DAILY 05/16/21 05/16/21 extended release clonazepam 1 mg tablet 1 tab PO TID PRN 05/16/21 05/16/21 diclofenac sodium 3 % topical gel 1 appl TOPICAL BID 05/16/21 05/16/21 ezetimibe 10 mg tablet 1 tab PO DAILY 05/16/21 05/16/21 levothyroxine 175 mcg tablet 1 tab PO DAILY 05/16/21 05/16/21 (Synthroid) loratadine 10 mg tablet 1 tab PO DAILY 05/16/21 05/16/21 paroxetine HCl 20 mg tablet 1 tab PO DAILY 05/16/21 05/16/21 pravastatin 80 mg tablet 1 tab PO DAILY 05/16/21 05/16/21 Mental Status Exam Mental Status Exam Patient Appearance: Well Grooomed Patient Orientation: Person Level of Consciousness: Awake Patient Behavior: Appropriate Mood Description: Constricted and Depressed Affect Description: Calm Patient Cognition Impaired: Yes Ability to Follow Directions: Good Speech Pattern: Clear Memory Description: Remote Impaired, Immediate Impaired and Recent Impaired Hallucinations: None Delusions: Not Present Thought Process: Slowed Thinking Thought Content: positive for Circumstantial, positive for Poverty of Content and positive for Thought Blocking Judgement: Fair Data Data Completed and Pending Completed studies during hospitalization [Text1]: 05/16/21 21:54 Blood - Venous Blood Culture - Final No growth after 5 days. 05/16/21 21:24 Blood - Venous Blood Culture - Final No growth after 5 days. 05/16/21 21:41 Urine clean catch - Urine dave top Urine Culture - Final Imaging Diagnostic Imaging Impressions Chest X-Ray 05/16/21 21:15 IMPRESSION: No infiltrate or focal consolidation Brain MRI 05/26/21 14:21 IMPRESSION: 1. No acute intracranial abnormalities. 2. Mild underlying microangiopathy. 3. Generalized cerebral volume loss again qualitatively involves the frontal and temporal lobes more so than the occipitoparietal lobes. If clinically indicated, this could be qualitatively characterized/followed with dedicated Neuro[employer] imaging. DS: Summary Hospital Course Hospital Course: Please see admission note for more details. The patient was admitted for exacerbation of depressive symptoms elicited by depressed mood, anhedonia and severe lack of energy. On admission the patient had 3 antidepressants at low doses. We review his list of medications, we contacted his regular psychiatrist and we decided to keep her only on Paxil 20 mg p.o. daily to target his depressive symptoms. The patient also presented with psychotic symptoms with paranoia and disorganized behavior. She also presented with a UTI that he was treated with antibiotics. We start a slow titration of Risperdal up to 1 mg p.o. t.i.d. with resolution of psychotic symptoms. Cognitively, the patient was very impaired with a Barren test and she scored 12/30. Also, an old MRI showed that she could have DX dementia. A new MRI was done and showed similar findings from the previous MRI of 2019. We had several family meetings and he was cleared at the cognitive deterioration of the patient has been a steady. We discussed risks, benefits and side effects and he agreed to continue on Paxil and risperidone and they are very aware the progressive nature of Peace dementia that will worsen her level of energy and lack of motivation. Since the patient did not present safety concerns discharge planning was discussed. 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 The appointment will be 45 minutes. ) Tristian Bruno MD Primary Care Provider [Other] - 1 Week [facility] [Other] - 1 Week (Referral for [facility] placed on 06/03/21 and online communications specialist Liv Sotomayor to contact you once you are discharged. ) [facility] [Other] - 06/07/21 (Referral for [facility] home care placed on 06/03/21. [facility] to contact you on Monday06/07/21 to set up intake appointment.) Discharge Medications: New acetaminophen 325 mg Tablet 650 mg PO TID PRN (Reason: Pain, Moderate (Pain Scale 4-6) 30 Days Qty: 90 RF: 0 loperamide 2 mg Capsule 2 mg PO Q4H PRN (Reason: Diarrhea) 30 Days Qty: 30 RF: 0 trazodone 50 mg Tablet 50 mg PO BEDTIME PRN (Reason: Insomnia) 30 Days Qty: 30 RF: 0 lorazepam 0.5 mg Tablet 0.5 mg PO BID 30 Days Qty: 60 RF: 0 risperidone 1 mg Tablet 1 mg PO TID 30 Days Qty: 90 RF: 0 Continued levothyroxine [Synthroid] 175 mcg tablet 1 tab PO DAILY 30 Days Qty: 30 RF: 0 diclofenac sodium 3 % gel 1 appl topical BID 30 Days Qty: 10 RF: 0 atenolol 100 mg tablet 1 tab PO DAILY 30 Days Qty: 30 RF: 0 amlodipine 5 mg tablet 1 tab PO DAILY 30 Days Qty: 30 RF: 0 pravastatin 80 mg tablet 1 tab PO DAILY 30 Days Qty: 30 RF: 0 paroxetine HCl 20 mg tablet 1 tab PO DAILY 30 Days Qty: 30 RF: 0 loratadine 10 mg tablet 1 tab PO DAILY 30 Days Qty: 30 RF: 0 ezetimibe 10 mg tablet 1 tab PO DAILY 30 Days Qty: 30 RF: 0 Discontinued clonazepam 1 mg tablet 1 tab PO TID PRN (Reason: anxiety) RF: 0 amitriptyline 25 mg tablet 1 tab PO BEDTIME RF: 0 bupropion HCl 150 mg tablet extended release 24 hr 1 tab PO DAILY RF: 0 Discharge Orders: Discharge Order (Routine); Ordered 06/04/21 Ordered By: Chuy Larson Diet: advance to usual diet Activity on Discharge: As tolerated Stand Alone Forms: Patient Portal Discharge page Care Plan Goals: Care plan goals achieved at the unit Health Concerns: Continue treatment with primary care physician as an outpatient Plan of Treatment: Continue medication management by regular psychiatrist Assessment: The patient is an elderly female with a long history of major depressive disorder with a recent onset of dementia with severe lack of energy, compatible with Pick's dementia. She was initially admitted for psychotic symptoms in the context of UTI that was treated. At this moment there were no safety concerns and the patient is at baseline.
== END 2021-06-04 13:15 | disposition home or self-care (01) | DRG 885 ==
LOC: HO.ED 05-18 19:21 → HO.PGERI 05-18 21:02
PROVIDERS: Admitting Provider Psychiatry & Neurology Psychiatry; Emergency Provider Student in an Organized Health Care Education/Training Program; PCP Psychiatry & Neurology Psychiatry; Visit Provider Psychiatry & Neurology Psychiatry
DX: F33.1 Major depressive disorder, recurrent, moderate (principal); N39.0 Urinary tract infection, site not specified; E03.9 Hypothyroidism, unspecified; F06.8 Other specified mental disorders due to known physiological condition; Z20.822 Contact with and (suspected) exposure to COVID-19; Z88.2 Allergy status to sulfonamides; Z79.890 Hormone replacement therapy; Z79.899 Other long term (current) drug therapy
CPT/HCPCS: 36415; 70551; 71045; 80048; 80053; 80061; 81001; 83036; 83605; 84443; 85025; 85610; 87040; 87086; 87635; 93005; 99232; 99285

== ENCOUNTER → 2021-10-06 14:04 | Outpatient (BNVA) | payer MEDICARE, OTHER, SELFPAY | PROVIDERS: PCP Psychiatry & Neurology Psychiatry; Visit Provider Anesthesiology | DX: M96.1 Postlaminectomy syndrome, not elsewhere classified (principal); M46.1 Sacroiliitis, not elsewhere classified; G20 Parkinson's disease; G89.4 Chronic pain syndrome | CPT/HCPCS: 99202 ==

== ENCOUNTER → 2022-10-17 08:36 | Outpatient (BNVA) | payer MEDICARE, OTHER, SELFPAY | PROVIDERS: PCP Psychiatry & Neurology Psychiatry; Visit Provider Anesthesiology | DX: Z13.89 Encounter for screening for other disorder (principal) | CPT/HCPCS: 99212 ==

== ENCOUNTER 2022-10-17 14:41 | Emergency (ER) | payer MEDICARE, OTHER, SELFPAY ==
--- NOTE | ~2022-10-17 | CT_ITS ---
EXAMINATION: CT ABDOMEN AND PELVIS WITH CONTRAST CLINICAL INFORMATION: Rectal bleeding COMPARISON: 04/19/2016 TECHNIQUE: Multidetector volumetric images were obtained from the superior aspect of the liver through the pubic symphysis following administration 85 mL of Omnipaque 350 intravenous contrast. Sagittal and coronal reformatted images were obtained on the technologist's workstation. Oral contrast: No This CT examination was performed using dose optimization techniques as appropriate, variously including the following: *Automated exposure control *Adjustment of mA and/or kV according to patient size (this includes techniques or standardized protocols for targeted exams where dose is matched to indication/reason for exam; i.e. extremities or head) *Use of iterative reconstruction technique DLP: 593 mGy-cm FINDINGS: LUNG BASES: The visualized lung bases are unremarkable. LIVER, GALLBLADDER, AND BILIARY TREE: The liver demonstrates hypoattenuation suggesting steatosis. No focal hepatic lesion or biliary ductal dilatation is present. The gallbladder is unremarkable with no evidence of radiopaque gallstones, gallbladder wall thickening, or obvious pericholecystic inflammatory changes. PANCREAS: Unremarkable. SPLEEN: Unremarkable. ADRENAL GLANDS: Unremarkable. KIDNEYS AND URETERS: No hydronephrosis or obstructing calculus bilaterally. There are several scattered hypoattenuating lesions in the kidneys measuring up to 3.3 cm in the mid right kidney favoring cysts; no follow-up recommended. BLADDER: Partially distended with mild diffuse mural prominence. GASTROINTESTINAL TRACT: Small hiatal hernia is present. No evidence of bowel obstruction. There is mild colonic diverticulosis without diverticulitis. No significant bowel wall thickening is seen. No free fluid or free air is seen. ABDOMINAL WALL: No significant hernia is appreciated. LYMPH NODES: Normal. VASCULAR: There is extensive calcification along the aorta. PELVIC VISCERA: Status post hysterectomy. OSSEOUS STRUCTURES: Posterior fusion hardware is present at L4-L5. There are degenerative changes of the lower lumbar spine. CT/CT abdomen pelvis w IV con IMPRESSION: 1. No acute findings identified in the abdomen/pelvis. 2. Small hiatal hernia. 3. Mild colonic diverticulosis without diverticulitis. 4. Mild diffuse mural prominence of the urinary bladder, which potentially could be due to cystitis in the proper clinical setting.
[2022-10-17 14:55] VITALS: BP 158/73; PULSE 75; RESP 18; TEMP 36.7; O2SAT 95; BMI 29.9
--- NOTE | 2022-10-17 15:05 | ED_ITS ---
HPI - Abdominal Pain General Chief Complaint: Abdominal Pain <Elke Johns NP - Last Filed: 10/17/22 15:05> Stated Complaint: blood in stools <Elke Johns NP - Last Filed: 10/17/22 15:05> Time Seen by Provider: 10/17/22 23:22 <Elke Johns NP - Last Filed: 10/17/22 15:05> Related Data Home Medications: Previous Rx's Medication Instructions Recorded acetaminophen 325 mg tablet 650 mg PO TID PRN Pain, Moderate 06/04/21 (Pain Scale 4-6 30 days #90 tabs amlodipine 5 mg tablet 1 tab PO DAILY 30 days #30 tabs 06/04/21 atenolol 100 mg tablet 1 tab PO DAILY 30 days #30 tabs 06/04/21 diclofenac sodium 3 % topical gel 1 appl topical BID 30 days #10 06/04/21 grams ezetimibe 10 mg tablet 1 tab PO DAILY 30 days #30 tabs 06/04/21 levothyroxine 175 mcg tablet 1 tab PO DAILY 30 days #30 tabs 06/04/21 (Synthroid) loperamide 2 mg capsule 2 mg PO Q4H PRN Diarrhea 30 days 06/04/21 #30 caps loratadine 10 mg tablet 1 tab PO DAILY 30 days #30 tabs 06/04/21 lorazepam 0.5 mg tablet 0.5 mg PO BID 30 days #60 tabs 06/04/21 paroxetine HCl 20 mg tablet 1 tab PO DAILY 30 days #30 tabs 06/04/21 pravastatin 80 mg tablet 1 tab PO DAILY 30 days #30 tabs 06/04/21 risperidone 1 mg tablet 1 mg PO TID 30 days #90 tabs 06/04/21 trazodone 50 mg tablet 50 mg PO BEDTIME PRN Insomnia 30 06/04/21 days #30 tabs nitrofurantoin 100 mg PO BID #14 caps 10/18/22 monohydrate/macrocrystals 100 mg capsule (Macrobid) <Elke Johns NP - Last Filed: 10/17/22 15:05> Allergies/Adverse Reactions: Allergies Allergy/AdvReac Type Severity Reaction Status Date / Time dicyclomine [From Bentyl] Allergy Mild 5 BLUE Verified 10/17/22 08:48 LINES ACROSS ABDOMEN prochlorperazine Allergy Mild Tongue Verified 10/17/22 15:41 [From Compazine] Swelling, Lock Jaw, Oral swelling shellfish derived Allergy Mild Diarrhea, Verified 10/17/22 15:41 swelling, abd pain Sulfa (Sulfonamide Allergy Mild RASH, hives Verified 10/17/22 08:48 Antibiotics) <Elke Johns NP - Last Filed: 10/17/22 15:05> [facility], [facility] Past Medical History Medical History: Medical History (Updated 10/18/22 @ 03:21 by Rena Hurst MD) Anxiety Chronic pain syndrome Depression High cholesterol Hypertension Hypothyroid Parkinson disease Postlaminectomy syndrome Sacroiliitis Schizophrenia <Elke Johns NP - Last Filed: 10/17/22 15:05> Surgical History: Surgical History H/O neck surgery Previous back surgery S/P appendectomy <Elke Johns NP - Last Filed: 10/17/22 15:05> Social History Social History: Social History Household Members: Spouse Housing: House Do you presently have visiting nurse or other home services: No Alcohol intake: never Patient Tobacco Use Status: Never used Tobacco Smoked in Last 30 Days: No Use of substances other than those prescribed or required for medical reasons: No Advance Directives: Yes Advance Directives on File: Yes Advance Directives Date on File: 06/07/21 service: No Sexual orientation: Straight/Heterosexual <Elke Johns NP - Last Filed: 10/17/22 15:05> Physical Exam ED Vital Signs: Vital Signs - 24 hr 10/17/22 14:55 10/18/22 00:15 Temperature 98.1 F 98.6 F Pulse Rate 75 71 Respiratory Rate 18 17 Blood Pressure 158/73 H 131/71 Pulse Oximetry 95 96 Oxygen Delivery Method Room Air Room Air BMI result Body Mass Index 29.9 <Elke Johns NP - Last Filed: 10/17/22 15:05> Vital Signs - 24 hr 10/17/22 14:55 10/18/22 00:15 Temperature 98.1 F 98.6 F Pulse Rate 75 71 Respiratory Rate 18 17 Blood Pressure 158/73 H 131/71 Pulse Oximetry 95 96 Oxygen Delivery Method Room Air Room Air BMI result Body Mass Index 29.9 <Rena Hurst MD - Last Filed: 10/18/22 03:25> Course Course Course Narrative: This is a rapid medical exam. Defer additional HPI, ROS, PE department provider. 72-year-old female with history of Parkinson's, chronic pain syndrome, depression, IBS presents with bloody stools for 2 months worsened today with abdominal cramping and nausea. Will obtain labs, vital stable <Elke Johns NP - Last Filed: 10/17/22 15:05> Medical Decision Making Medical Decision Making [facility] Narrative: -I discussed with the patient the need her white blood cell count is normal, hemoglobin is normal. CT scan did not show any significant acute abnormality. guaic stool test negative. -I discussed with the patient that if she has continues rectal bleeding, she needs to follow-up with gastroenterology. Patient will be provided with the phone number of GI. -patient has a mild UTI. First dose of antibiotic given in the emergency room, Macrobid. <Rena Hurst MD - Last Filed: 10/18/22 03:25> Differential Diagnosis Differential Diagnoses: The differential diagnosis associated with the presentation includes (Colitis, gastroenteritis, radiculitis, IBS) <Rena Hurst MD - Last Filed: 10/18/22 03:25> Lab Data [facility] Lab Attestation statement: I reviewed the patient's lab results. <Rena Hurst MD - Last Filed: 10/18/22 03:25> Result Diagrams: 10/17/22 17:49 10/17/22 17:49 <Elke Johns NP - Last Filed: 10/17/22 15:05> Labs: Lab Results 10/17/22 10/17/22 10/17/22 Range/Units 17:49 17:49 17:49 WBC 9.3 (4.8-10.8) X10*3/uL RBC 4.32 (4.20-5.50) X10*6/uL Hgb 13.1 (12.0-16.0) g/dl Hct 36.7 L (37.0-47.0) % MCV 85.0 (80.0-98.0) fL MCH 30.3 (27.0-33.0) pg MCHC 35.7 H (31.0-35.0) g/dl RDW 13.3 (11.0-16.0) % Plt Count 151 L (160-400) X10*3/uL MPV 8.7 L (9.4-12.3) fL Immature Gran % (Auto) 0.3 (0.0-0.4) % Neut % (Auto) 54.5 (45-73) % Lymph % (Auto) 35.8 (20-40) % [place] % (Auto) 7.2 (2-11) % Eos % (Auto) 1.7 (0-4) % Baso % (Auto) 0.5 (0-2) % Lymph # (Auto) 3.3 (1.2-4.9) X10*3/uL [place] # (Auto) 0.7 (0.1-1.2) X10*3/uL Eos # (Auto) 0.2 (0.0-0.4) X10*3/uL Baso # (Auto) 0.1 (0.0-0.2) X10*3/uL Abs Immat Gran (auto) 0.03 (0.00-0.03) X10*3/uL Absolute Neuts (auto) 5.1 (2.0-8.3) x10*3/uL Absolute Nucleated RBC 0.000 (0.0-0.012) X10*3/uL Nucleated RBC % (auto) 0.0 (0.0-0.2) /100WBC PT 11.4 (10.0-13.1) SEC INR 1.0 (0.9-1.1) Sodium (135-145) mmol/L Potassium (3.3-5.1) mmol/L Chloride (96-108) mmol/L Carbon Dioxide (22-29) mmol/L Anion Gap (12-20) BUN (9-16) mg/dL Creatinine (0.5-1.4) mg/dL Estim Creat Clear Calc Estimated GFR Random Glucose (60-115) mg/dL Calcium (8.4-10.2) mg/dL Total Bilirubin (0.0-1.0) mg/dL Direct Bilirubin (0.0-0.5) mg/dL AST (5-31) U/L ALT (0-31) U/L Alkaline Phosphatase (39-117) U/L C-Reactive Protein (< or = 0.50) mg/dL Total Protein (6.5-8.0) g/dL Albumin (3.5-5.0) g/dL Urine Color Urine Appearance Urine pH (5.0-9.0) Ur Specific [place] (1.005-1.025) Urine Protein (Neg-Trace) mg/dL Urine Glucose (UA) (Negative) mg/dL Urine Ketones (Negative) mg/dL Urine Blood (Negative) Urine Nitrite (Negative) Ur Leukocyte Esterase (Negative) Urine RBC (0-2) /HPF Urine WBC (0-5) /HPF Ur Squamous Epith Cells (0-2) /HPF Urine Bacteria (None Seen) Hyaline Casts (0-2) /LPF Stool Occult Blood (NEGATIVE) COVID-19 (ANTIONETTE) Negative (Negative) COVID-19 Clin Com See Note 10/17/22 10/18/22 10/18/22 Range/Units 17:49 00:10 00:22 WBC (4.8-10.8) X10*3/uL RBC (4.20-5.50) X10*6/uL Hgb (12.0-16.0) g/dl Hct (37.0-47.0) % MCV (80.0-98.0) fL MCH (27.0-33.0) pg MCHC (31.0-35.0) g/dl RDW (11.0-16.0) % Plt Count (160-400) X10*3/uL MPV (9.4-12.3) fL Immature Gran % (Auto) (0.0-0.4) % Neut % (Auto) (45-73) % Lymph % (Auto) (20-40) % [place] % (Auto) (2-11) % Eos % (Auto) (0-4) % Baso % (Auto) (0-2) % Lymph # (Auto) (1.2-4.9) X10*3/uL [place] # (Auto) (0.1-1.2) X10*3/uL Eos # (Auto) (0.0-0.4) X10*3/uL Baso # (Auto) (0.0-0.2) X10*3/uL Abs Immat Gran (auto) (0.00-0.03) X10*3/uL Absolute Neuts (auto) (2.0-8.3) x10*3/uL Absolute Nucleated RBC (0.0-0.012) X10*3/uL Nucleated RBC % (auto) (0.0-0.2) /100WBC PT (10.0-13.1) SEC INR (0.9-1.1) Sodium 139 (135-145) mmol/L Potassium 4.4 (3.3-5.1) mmol/L Chloride 102 (96-108) mmol/L Carbon Dioxide 28 (22-29) mmol/L Anion Gap 13 (12-20) BUN 9 (9-16) mg/dL Creatinine 0.78 (0.5-1.4) mg/dL Estim Creat Clear Calc 61.5 Estimated GFR > 60 Random Glucose 100 (60-115) mg/dL Calcium 9.6 (8.4-10.2) mg/dL Total Bilirubin 1.0 (0.0-1.0) mg/dL Direct Bilirubin 0.3 (0.0-0.5) mg/dL AST 61 H (5-31) U/L ALT 41 H (0-31) U/L Alkaline Phosphatase 80 (39-117) U/L C-Reactive Protein 0.38 (< or = 0.50) mg/dL Total Protein 6.7 (6.5-8.0) g/dL Albumin 4.3 (3.5-5.0) g/dL Urine Color Yellow Urine Appearance Clear Urine pH 7.5 (5.0-9.0) Ur Specific [place] 1.015 (1.005-1.025) Urine Protein Negative (Neg-Trace) mg/dL Urine Glucose (UA) Negative (Negative) mg/dL Urine Ketones Negative (Negative) mg/dL Urine Blood Negative (Negative) Urine Nitrite Negative (Negative) Ur Leukocyte Esterase Small (1+) H (Negative) Urine RBC 0-2 (0-2) /HPF Urine WBC 11-20 H (0-5) /HPF Ur Squamous Epith Cells 0-2 (0-2) /HPF Urine Bacteria None Seen (None Seen) Hyaline Casts 0-2 (0-2) /LPF Stool Occult Blood NEGATIVE (NEGATIVE) COVID-19 (ANTIONETTE) (Negative) COVID-19 Clin Com <Elke Lionjuneangie, [employer] - Last Filed: 10/17/22 15:05> Lab Results 10/17/22 10/17/22 10/17/22 Range/Units 17:49 17:49 17:49 WBC 9.3 (4.8-10.8) X10*3/uL RBC 4.32 (4.20-5.50) X10*6/uL Hgb 13.1 (12.0-16.0) g/dl Hct 36.7 L (37.0-47.0) % MCV 85.0 (80.0-98.0) fL MCH 30.3 (27.0-33.0) pg MCHC 35.7 H (31.0-35.0) g/dl RDW 13.3 (11.0-16.0) % Plt Count 151 L (160-400) X10*3/uL MPV 8.7 L (9.4-12.3) fL Immature Gran % (Auto) 0.3 (0.0-0.4) % Neut % (Auto) 54.5 (45-73) % Lymph % (Auto) 35.8 (20-40) % [place] % (Auto) 7.2 (2-11) % Eos % (Auto) 1.7 (0-4) % Baso % (Auto) 0.5 (0-2) % Lymph # (Auto) 3.3 (1.2-4.9) X10*3/uL [place] # (Auto) 0.7 (0.1-1.2) X10*3/uL Eos # (Auto) 0.2 (0.0-0.4) X10*3/uL Baso # (Auto) 0.1 (0.0-0.2) X10*3/uL Abs Immat Gran (auto) 0.03 (0.00-0.03) X10*3/uL Absolute Neuts (auto) 5.1 (2.0-8.3) x10*3/uL Absolute Nucleated RBC 0.000 (0.0-0.012) X10*3/uL Nucleated RBC % (auto) 0.0 (0.0-0.2) /100WBC PT 11.4 (10.0-13.1) SEC INR 1.0 (0.9-1.1) Sodium (135-145) mmol/L Potassium (3.3-5.1) mmol/L Chloride (96-108) mmol/L Carbon Dioxide (22-29) mmol/L Anion Gap (12-20) BUN (9-16) mg/dL Creatinine (0.5-1.4) mg/dL Estim Creat Clear Calc Estimated GFR Random Glucose (60-115) mg/dL Calcium (8.4-10.2) mg/dL Total Bilirubin (0.0-1.0) mg/dL Direct Bilirubin (0.0-0.5) mg/dL AST (5-31) U/L ALT (0-31) U/L Alkaline Phosphatase (39-117) U/L C-Reactive Protein (< or = 0.50) mg/dL Total Protein (6.5-8.0) g/dL Albumin (3.5-5.0) g/dL Urine Color Urine Appearance Urine pH (5.0-9.0) Ur Specific [place] (1.005-1.025) Urine Protein (Neg-Trace) mg/dL Urine Glucose (UA) (Negative) mg/dL Urine Ketones (Negative) mg/dL Urine Blood (Negative) Urine Nitrite (Negative) Ur Leukocyte Esterase (Negative) Urine RBC (0-2) /HPF Urine WBC (0-5) /HPF Ur Squamous Epith Cells (0-2) /HPF Urine Bacteria (None Seen) Hyaline Casts (0-2) /LPF Stool Occult Blood (NEGATIVE) COVID-19 (ANTIONETTE) Negative (Negative) COVID-19 Clin Com See Note 10/17/22 10/18/22 10/18/22 Range/Units 17:49 00:10 00:22 WBC (4.8-10.8) X10*3/uL RBC (4.20-5.50) X10*6/uL Hgb (12.0-16.0) g/dl Hct (37.0-47.0) % MCV (80.0-98.0) fL MCH (27.0-33.0) pg MCHC (31.0-35.0) g/dl RDW (11.0-16.0) % Plt Count (160-400) X10*3/uL MPV (9.4-12.3) fL Immature Gran % (Auto) (0.0-0.4) % Neut % (Auto) (45-73) % Lymph % (Auto) (20-40) % [place] % (Auto) (2-11) % Eos % (Auto) (0-4) % Baso % (Auto) (0-2) % Lymph # (Auto) (1.2-4.9) X10*3/uL [place] # (Auto) (0.1-1.2) X10*3/uL Eos # (Auto) (0.0-0.4) X10*3/uL Baso # (Auto) (0.0-0.2) X10*3/uL Abs Immat Gran (auto) (0.00-0.03) X10*3/uL Absolute Neuts (auto) (2.0-8.3) x10*3/uL Absolute Nucleated RBC (0.0-0.012) X10*3/uL Nucleated RBC % (auto) (0.0-0.2) /100WBC PT (10.0-13.1) SEC INR (0.9-1.1) Sodium 139 (135-145) mmol/L Potassium 4.4 (3.3-5.1) mmol/L Chloride 102 (96-108) mmol/L Carbon Dioxide 28 (22-29) mmol/L Anion Gap 13 (12-20) BUN 9 (9-16) mg/dL Creatinine 0.78 (0.5-1.4) mg/dL Estim Creat Clear Calc 61.5 Estimated GFR > 60 Random Glucose 100 (60-115) mg/dL Calcium 9.6 (8.4-10.2) mg/dL Total Bilirubin 1.0 (0.0-1.0) mg/dL Direct Bilirubin 0.3 (0.0-0.5) mg/dL AST 61 H (5-31) U/L ALT 41 H (0-31) U/L Alkaline Phosphatase 80 (39-117) U/L C-Reactive Protein 0.38 (< or = 0.50) mg/dL Total Protein 6.7 (6.5-8.0) g/dL Albumin 4.3 (3.5-5.0) g/dL Urine Color Yellow Urine Appearance Clear Urine pH 7.5 (5.0-9.0) Ur Specific [place] 1.015 (1.005-1.025) Urine Protein Negative (Neg-Trace) mg/dL Urine Glucose (UA) Negative (Negative) mg/dL Urine Ketones Negative (Negative) mg/dL Urine Blood Negative (Negative) Urine Nitrite Negative (Negative) Ur Leukocyte Esterase Small (1+) H (Negative) Urine RBC 0-2 (0-2) /HPF Urine WBC 11-20 H (0-5) /HPF Ur Squamous Epith Cells 0-2 (0-2) /HPF Urine Bacteria None Seen (None Seen) Hyaline Casts 0-2 (0-2) /LPF Stool Occult Blood NEGATIVE (NEGATIVE) COVID-19 (ANTIONETTE) (Negative) COVID-19 Clin Com <Rena Hurst MD - Last Filed: 10/18/22 03:25> Independent Interpretation I performed an independent interpretation of an: CT Scan (My interpretation of CT scan of the abdomen: No small bowel obstruction, large cyst in the right kidney) <Rena Hurst MD - Last Filed: 10/18/22 03:25> Radiology Impression Discussion of test interpretation with radiology: I have reviewed the radiologist's reading. <Rena Hurst MD - Last Filed: 10/18/22 03:25> Radiologist Impression: FINDINGS: LUNG BASES: The visualized lung bases are unremarkable.? LIVER, GALLBLADDER, AND BILIARY TREE: The liver demonstrates hypoattenuation suggesting steatosis. No focal hepatic lesion or biliary ductal dilatation is present. The gallbladder is unremarkable with no evidence of radiopaque gallstones, gallbladder wall thickening, or obvious pericholecystic inflammatory changes.? PANCREAS: Unremarkable.? SPLEEN: Unremarkable.? ADRENAL GLANDS: Unremarkable.? KIDNEYS AND URETERS: No hydronephrosis or obstructing calculus bilaterally. There are several scattered hypoattenuating lesions in the kidneys measuring up to 3.3 cm in the mid right kidney favoring cysts; no follow-up recommended. BLADDER: Partially distended with mild diffuse mural prominence.? GASTROINTESTINAL TRACT: Small hiatal hernia is present. No evidence of bowel obstruction. There is mild colonic diverticulosis without diverticulitis. No significant bowel wall thickening is seen. No free fluid or free air is seen. ABDOMINAL WALL: No significant hernia is appreciated.? LYMPH NODES: Normal. VASCULAR: There is extensive calcification along the aorta. PELVIC VISCERA: Status post hysterectomy.? OSSEOUS STRUCTURES: Posterior fusion hardware is present at L4-L5. There are degenerative changes of the lower lumbar spine.? CT/CT abdomen pelvis w IV con IMPRESSION: 1.? No acute findings identified in the abdomen/pelvis. 2.? Small hiatal hernia. 3.? Mild colonic diverticulosis without diverticulitis. 4.? Mild diffuse mural prominence of the urinary bladder, which potentially could be due to cystitis in the proper clinical setting. ? <Rena Hurst MD - Last Filed: 10/18/22 03:25> Medications Administered Discontinued Medications Generic Name Dose Route Start Last Admin Trade Name Freq PRN Reason Stop Dose Admin Iohexol 85 ml 10/18/22 02:39 10/18/22 02:40 Iohexol 350 Mg/Ml 100 Ml Infus..Btl IV 10/18/22 02:40 85 ml ONCE ONE Administration <Elke Johns NP - Last Filed: 10/17/22 15:05> Medications Administered Discontinued Medications Generic Name Dose Route Start Last Admin Trade Name Freq PRN Reason Stop Dose Admin Iohexol 85 ml 10/18/22 02:39 10/18/22 02:40 Iohexol 350 Mg/Ml 100 Ml Infus..Btl IV 10/18/22 02:40 85 ml ONCE ONE Administration <Rena Hurst MD - Last Filed: 10/18/22 03:25> Discharge Plan Discharge Clinical Impression: Acute UTI, Abdominal pain <Elke Johns NP - Last Filed: 10/17/22 15:05> Patient Disposition: Home, Self-Care <Elke Johns NP - Last Filed: 10/17/22 15:05> Instructions: Abdominal Pain (ED), Urinary Tract Infection in Older Adults (ED) <Elke Johns NP - Last Filed: 10/17/22 15:05> Additional Instructions: Please follow-up with your primary care physician tomorrow. If you have any worsening or new symptoms, please return to the emergency room or call 911 <Elke Johns NP - Last Filed: 10/17/22 15:05> Prescriptions: New nitrofurantoin monohyd/m-cryst [Macrobid] 100 mg capsule 100 mg PO BID Qty: 14 0RF Rx Instructions: must administer with a meal/food No Action acetaminophen 325 mg Tablet 650 mg PO TID PRN (Reason: Pain, Moderate (Pain Scale 4-6) 30 Days Qty: 90 0RF loperamide 2 mg Capsule 2 mg PO Q4H PRN (Reason: Diarrhea) 30 Days Qty: 30 0RF trazodone 50 mg Tablet 50 mg PO BEDTIME PRN (Reason: Insomnia) 30 Days Qty: 30 0RF lorazepam 0.5 mg Tablet 0.5 mg PO BID 30 Days Qty: 60 0RF risperidone 1 mg Tablet 1 mg PO TID 30 Days Qty: 90 0RF levothyroxine [Synthroid] 175 mcg tablet 1 tab PO DAILY 30 Days Qty: 30 0RF diclofenac sodium 3 % gel 1 appl topical BID 30 Days Qty: 10 0RF atenolol 100 mg tablet 1 tab PO DAILY 30 Days Qty: 30 0RF amlodipine 5 mg tablet 1 tab PO DAILY 30 Days Qty: 30 0RF pravastatin 80 mg tablet 1 tab PO DAILY 30 Days Qty: 30 0RF paroxetine HCl 20 mg tablet 1 tab PO DAILY 30 Days Qty: 30 0RF loratadine 10 mg tablet 1 tab PO DAILY 30 Days Qty: 30 0RF ezetimibe 10 mg tablet 1 tab PO DAILY 30 Days Qty: 30 0RF <Elke Johns NP - Last Filed: 10/17/22 15:05> Referrals: Prieto Portillo MD [Physician] - 3 days <Elke Johns NP - Last Filed: 10/17/22 15:05>
[2022-10-17 17:54] LABS: MANUAL DIFF FLAG NO
[2022-10-17 17:56] LABS: Basophils Absolute Auto 0.1 X10*3/uL (0.0-0.2); Basophils Percent Auto 0.5 % (0-2); Eosinophils Absolute Auto 0.2 X10*3/uL (0.0-0.4); Eosinophils Percent Auto 1.7 % (0-4); Hematocrit 36.7 % (37.0-47.0); Hemoglobin 13.1 g/dl (12.0-16.0); Imm Gran Abs Auto 0.03 X10*3/uL (0.00-0.03); Imm Gran Pct Auto 0.3 % (0.0-0.4); Lymphocytes Absolute Auto 3.3 X10*3/uL (1.2-4.9); Lymphocytes Percent Auto 35.8 % (20-40); Mean Corpuscular HGB Conc 35.7 g/dl (31.0-35.0); Mean Corpuscular Hemoglobin 30.3 pg (27.0-33.0); Mean Platelet Volume 8.7 fL (9.4-12.3); Monocytes Absolute Auto 0.7 X10*3/uL (0.1-1.2); Monocytes Percent Auto 7.2 % (2-11); Neutrophils Absolute Auto 5.1 x10*3/uL (2.0-8.3); Neutrophils Percent Auto 54.5 % (45-73); Platelet Count 151 X10*3/uL (160-400); Red Blood Count 4.32 X10*6/uL (4.20-5.50); Red Cell Distribution Width 13.3 % (11.0-16.0); White Blood Count 9.3 X10*3/uL (4.8-10.8)
[2022-10-17 18:01] LABS: Prothrombin Time 11.4 SEC (10.0-13.1)
[2022-10-17 18:07] LABS: COVID-19 Test Negative (Negative); IDNOW Serial# BCCEAD1C
[2022-10-17 18:13] LABS: Alanine Aminotransferase 41 U/L (0-31); Albumin Level 4.3 g/dL (3.5-5.0); Alkaline Phosphatase 80 U/L (39-117); Anion Gap 13 (12-20); Aspartate Amino Transferase 61 U/L (5-31); Bilirubin Direct 0.3 mg/dL (0.0-0.5); Blood Urea Nitrogen 9 mg/dL (9-16); Calcium 9.6 mg/dL (8.4-10.2); Carbon Dioxide 28 mmol/L (22-29); Chloride 102 mmol/L (96-108); Creatinine Clr Calc Pharmacy 61.5; Estimated Glomerular Filt Rate > 60; Glucose Random 100 mg/dL (60-115); Potassium 4.4 mmol/L (3.3-5.1); Sodium 139 mmol/L (135-145); Total Protein 6.7 g/dL (6.5-8.0)
[2022-10-18 00:05] LABS: C Reactive Protein 0.38 mg/dL (< or = 0.50)
[2022-10-18 00:15] VITALS: BP 131/71; PULSE 71; RESP 17; TEMP 37; O2SAT 96
[2022-10-18 00:17] LABS: OBS Int Ctl Valid YES; OBS1 NEGATIVE (NEGATIVE)
[2022-10-18 00:32] LABS: Appearance Urine Clear; Color Urine Yellow; Glucose Urine UA Negative (Negative); Leukocyte Esterase Urine Small (1+) (Negative); Nitrite Urine Negative (Negative); PH 7.5 (5.0-9.0); Specific Gravity - Urine 1.015 (1.005-1.025); UMIC TRIGGER UACC YES; Urine Blood Negative (Negative); Urine Ketones Negative (Negative); Urine Protein Negative (Neg-Trace)
[2022-10-18 01:36] LABS: Bacteria Urine None Seen (None Seen); Hyaline Casts Urine 0-2 /LPF (0-2); RBC Urine 0-2 /HPF (0-2); Squamous Epithelial Cell Urine 0-2 /HPF (0-2); UACC Culture Trigger YES
[2022-10-18] MEDS: iohexoL 350 MG/ML 100 ML INFUS..BTL 85 ML IV (02:40)
[2022-10-18 03:30] VITALS: BP 158/64; PULSE 71; RESP 17; TEMP 36.4; O2SAT 96
[2022-10-18] MEDS: Nitrofurantoin Monohyd/M-Cryst 100 MG CAPSULE PO (04:24)
--- NOTE | 2022-10-18 04:27 | PC.NURSE ---
Pt. has remained resting in bed, no apparent distress noted. Pt.'s spouse has remained at bedside. PT. medicated per NOV.
== END 2022-10-18 04:51 | disposition home or self-care (01) ==
PROVIDERS: Nurse Practitioner Family; Emergency Provider Emergency Medicine; PCP Family Medicine
DX: N39.0 Urinary tract infection, site not specified (principal); R10.30 Lower abdominal pain, unspecified; Z20.822 Contact with and (suspected) exposure to COVID-19; Z20.828 Contact with and (suspected) exposure to other viral communicable diseases; Z79.899 Other long term (current) drug therapy
CPT/HCPCS: 36415; 74177; 80048; 80076; 81001; 82272; 85025; 85610; 86140; 87086; 87635; 99212; 99284; Q9967

== ENCOUNTER 2022-11-08 07:13 | Outpatient (REF) | payer MEDICARE, OTHER, SELFPAY ==
--- NOTE | ~2022-11-08 | FL_ITS ---
EXAMINATION: XR FLUOROSCOPY WITH IMAGES CLINICAL INFORMATION: M46.1 - Sacroiliitis, not elsewhere classified COMPARISON: CT pelvis 10/18/2022 TECHNIQUE: Fluoroscopy Supervised By: Dr. Ricardo Conti. Fluoroscopy Time: 0.2 minutes. Cumulative Dose: 4.66 mGy. DAP: 1.27 Gycm2. Images: 2. FINDINGS: Spinal needled overlies mid left and mid right SI joints. SI joint. There is contrast in the periarticular soft tissues with probable early intra-articular contrast. FL/FL guidance in treatment room IMPRESSION: Fluoroscopy for pain management procedures.
== END 2022-11-08 07:14 | disposition home or self-care (01) ==
LOC: CF 07:13
PROVIDERS: Visit Provider Anesthesiology
DX: M96.1 Postlaminectomy syndrome, not elsewhere classified (principal); M46.1 Sacroiliitis, not elsewhere classified; G89.4 Chronic pain syndrome; G20 Parkinson's disease
CPT/HCPCS: 27096; J2795

== ENCOUNTER → 2022-11-10 10:01 | Outpatient (BNVA) | payer MEDICARE, OTHER, SELFPAY | PROVIDERS: PCP Family Medicine; Visit Provider Anesthesiology | DX: G20 Parkinson's disease (principal); G89.4 Chronic pain syndrome; M46.1 Sacroiliitis, not elsewhere classified; M96.1 Postlaminectomy syndrome, not elsewhere classified | CPT/HCPCS: Q3014 ==

== ENCOUNTER 2023-06-19 18:20 | Observation (INO) | payer MEDICARE, OTHER, SELFPAY ==
--- NOTE | 2023-06-19 | ECG_ITS ---
Test Reason : CP Blood Pressure : / mmHG Vent. Rate : 074 BPM Atrial Rate : 074 BPM P-R Int : 134 ms QRS Dur : 136 ms QT Int : 434 ms P-R-T Axes : 060 072 037 degrees QTc Int : 481 ms Normal sinus rhythm Right bundle branch block Abnormal ECG When compared with ECG of 27-MAY-2021 15:43, No significant change was found Referred By: Rena Hurst Electronically Signed By:BOBBY AVENDAÑO
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
[2023-06-19 18:36] VITALS: BP 166/66; PULSE 80; RESP 19; TEMP 36.7; O2SAT 97
[2023-06-19 18:41] VITALS: BP 162/100; PULSE 88; O2SAT 98; BMI 31.4
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
[2023-06-19 20:25] LABS: MANUAL DIFF FLAG NO
[2023-06-19 20:30] LABS: Basophils Percent Auto 0.4 % (0-2); Eosinophils Absolute Auto 0.1 X10*3/uL (0.0-0.4); Eosinophils Percent Auto 1.2 % (0-4); Hematocrit 38.1 % (37.0-47.0); Hemoglobin 13.6 g/dl (12.0-16.0); Imm Gran Abs Auto 0.04 X10*3/uL (0.00-0.03); Imm Gran Pct Auto 0.4 % (0.0-0.4); Lymphocytes Absolute Auto 1.8 X10*3/uL (1.2-4.9); Lymphocytes Percent Auto 19.6 % (20-40); Mean Corpuscular HGB Conc 35.7 g/dl (31.0-35.0); Mean Corpuscular Hemoglobin 30.3 pg (27.0-33.0); Mean Corpuscular Volume 84.9 fL (80.0-98.0); Mean Platelet Volume 8.9 fL (9.4-12.3); Monocytes Absolute Auto 0.7 X10*3/uL (0.1-1.2); Monocytes Percent Auto 7.6 % (2-11); Neutrophils Absolute Auto 6.7 x10*3/uL (2.0-8.3); Neutrophils Percent Auto 70.8 % (45-73); Platelet Count 155 X10*3/uL (160-400); Red Blood Count 4.49 X10*6/uL (4.20-5.50); Red Cell Distribution Width 12.9 % (11.0-16.0); White Blood Count 9.4 X10*3/uL (4.8-10.8)
[2023-06-19 20:41] LABS: COVID-19 Test Negative (Negative); IDNOW Serial# BCCEAD1C
[2023-06-19 20:45] LABS: Alanine Aminotransferase 69 U/L (0-31); Albumin Level 4.2 g/dL (3.5-5.0); Alkaline Phosphatase 76 U/L (39-117); Anion Gap 16 (12-20); Aspartate Amino Transferase 107 U/L (5-31); Bilirubin Direct 0.4 mg/dL (0.0-0.5); Bilirubin Total 0.9 mg/dL (0.0-1.0); Blood Urea Nitrogen 10 mg/dL (9-16); Calcium 9.7 mg/dL (8.4-10.2); Carbon Dioxide 24 mmol/L (22-29); Chloride 101 mmol/L (96-108); Creatinine Clr Calc Pharmacy 62.1; Estimated Glomerular Filt Rate > 60; Ethanol < 10 mg/dL; Glucose Random 244 mg/dL (60-115); Potassium 3.7 mmol/L (3.3-5.1); Sodium 137 mmol/L (135-145); Total Protein 7.1 g/dL (6.5-8.0)
[2023-06-19 20:57] LABS: Troponin-I High Sensitivity 127.8 ng/L (<3.5-17.0)
[2023-06-19 21:15] VITALS: BP 123/58; PULSE 78; RESP 18; TEMP 36.2; O2SAT 96
--- NOTE | 2023-06-19 21:23 | PC.NURSE ---
On assessment of labwork, pt found to have elevated Troponin, pt then endorsed mild chest pain approx 1 hour ago, without prior notification of same. EKG ordered, provider notified.
--- NOTE | 2023-06-19 22:31 | PC.NURSE ---
this rn ambulated pt to bathroom. pt has steady gait, no complaints of dizziness or SOB at this time.
[2023-06-19 22:39] LABS: Appearance Urine Clear; Color Urine Yellow; Glucose Urine UA Negative (Negative); Leukocyte Esterase Urine Large (3+) (Negative); Nitrite Urine Negative (Negative); UMIC TRIGGER UACC YES; Urine Blood Negative (Negative); Urine Ketones Negative (Negative); Urine Protein 100 (2+) mg/dL (Neg-Trace)
[2023-06-19 22:44] LABS: Bacteria Urine None Seen (None Seen); Hyaline Casts Urine 0-2 /LPF (0-2); RBC Urine 0-2 /HPF (0-2); UACC Culture Trigger YES; WBC Urine >50 /HPF (0-5)
[2023-06-19 22:47] LABS: Amphetamine Screen Urine Not Detected (Not Detect); Barbiturates, Urine Not Detected (Not Detect); Benzodiazepines Screen Urine Not Detected (Not Detect); Cannabinoid Screen Urine Not Detected (Not Detect); Cocaine Screen Urine Not Detected (Not Detect); Fentanyl, urine Not Detected (Not Detect); Opiate Screen Urine Not Detected (Not Detect); Phencyclidine Screen Urine Not Detected (Not Detect)
[2023-06-19 23:03] LABS: Troponin-I High Sensitivity 116.6 ng/L (<3.5-17.0)
[2023-06-20] VITALS (10 sets, daily range): BP systolic 113–154; BP diastolic 56–98; PULSE 72–102; RESP 15–22; TEMP 35.8–36.9; O2SAT 93–100; BMI 32.1
--- NOTE | 2023-06-20 00:21 | ECG_ITS ---
Test Reason : ABNORMAL LABS Blood Pressure : / mmHG Vent. Rate : 072 BPM Atrial Rate : 072 BPM P-R Int : 136 ms QRS Dur : 142 ms QT Int : 458 ms P-R-T Axes : 061 072 034 degrees QTc Int : 501 ms Normal sinus rhythm Right bundle branch block Abnormal ECG When compared with ECG of 19-JUN-2023 21:22, No significant change was found Referred By: Rena Hurst Electronically Signed By:BOBBY AVENDAÑO
[2023-06-20 01:14] LABS: Troponin-I High Sensitivity 88.5 ng/L (<3.5-17.0)
[2023-06-20] MEDS: Acetaminophen 325 MG TABLET 975 MG PO (02:04)
--- NOTE | 2023-06-20 02:05 | PC.NURSE ---
at bedside discussing pt care.
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
--- NOTE | 2023-06-20 03:17 | PC.NURSE ---
this RN completed pt med rec.
--- NOTE | 2023-06-20 07:00 | CA_ITS ---
Transthoracic Echocardiogram Patient (Last, First, Middle): Christa Singletary L Gender: Female Date of : 1950 Age: 73 Procedure Date: 06/20/2023 Procedure Type: Transthoracic Echocardiogram [place] [facility] [place] Height: 160.02 cm Weight: 80.29 kg BSA: 1.84 m2 Heart Rate: 79 bpm BP: 153 / 72 mmHg Proof Inspector: SIERRA Referring MD: Sumaya Hutton MD Symptoms: elevated troponin Study Quality: Adequate ECG Rhythm: Sinus Conclusions: - The left ventricular systolic function is normal. The visually estimated ejection fraction is between 65-70%. - The basal inferior and basal inferolateral segments are hypokinetic. - No obvious valvular pathology seen on this study. Findings Left Ventricle Normal left ventricular cavity size. The left ventricular systolic function is normal. The visually estimated ejection fraction is between 65-70%. Evidence suggests grade I (mild) diastolic dysfunction. There is mild septal asymmetric hypertrophy. Wall Motion Rest Echo Findings The basal inferior and basal inferolateral segments are hypokinetic. Right Ventricle Normal right ventricular cavity size and systolic function. Atria Both atria are normal in size. Aortic Valve There is a normal trileaflet aortic valve. There is no aortic valve stenosis. There is no aortic valve regurgitation. Mitral Valve The mitral valve appears normal. There is mild mitral valve regurgitation. There is no mitral valve stenosis. Pulmonic Valve The pulmonic valve is likely normal. Tricuspid Valve Normal tricuspid valve structure. There is trace tricuspid valve regurgitation. There is no evidence of pulmonary hypertension. Great Vessels The asc aorta is normal in size. Venous The inferior vena cava is normal in size and collapses less than 50% with inspiration. Pericardium/Pleural There is no evidence of pericardial effusion. Prior Study Comparison Changes noted compared to prior study dated: 11/09/2016. Wall motion abnormality noted. Recommendations, Care & Conclusions No obvious valvular pathology seen on this study. Measurements 2D Linear Measurements IVSd: 1.17 0.6-0.9/0.6-1.0 cm LVIDd: 3.28 3.9-5.3/4.2-5.9 cm LVIDd Index: 1.78 2.4-3.2/2.2-3.1 cm/m2 LVIDs: 2.57 2.0-3.6 cm LVPWd: 0.95 0.7-1.1 cm LA Diam: 3.10 2.7-3.8/3.0-4.0 cm LAIDs Index: 1.68 1.5-2.3 cm/m2 LV Mass: 127.43 67-162/88-224 g LV Mass Index: 69.25 43-95/49-115 g/m2 LVOT Diam: 1.80 3.0+(-)1.3 cm 2D Systolic Function EF 4C: 74.50 >55% EF 2C: 53.70 >55% EF BiP: 68.50 >55% Mitral Valve MV Pk E: 0.77 MV PK A: 0.83 MV Decel Time: 210.00 E/A: 0.90 E'Lateral: 6.85 E'Medial: 6.42 E/E' Med: 12.00 E/E' Lat: 11.30 PHT: 62.00 MVA PHT: 3.55 Decel [place]: 3.67 Aortic Valve AoV Pk Parth: 1.31 AoV Mn Parth: 0.97 AoV VTI: 0.29 AoV Pk Grad: 7.00 Aov Mn Grad: 4.00 [place] Cont.VTI: 1.99 LVOT LVOT Pk Parth: 1.11 LVOT Mn Parth: 0.82 LVOT VTI: 0.22 LVOT Pk Grad: 5.00 LVOT Mn Grad: 3.00 LVOT Diam: 1.80 LVOT Area: 2.54 Diastolic Function MV Pk E: 0.77 MV Pk A: 0.83 E/A: 0.90 E'Medial: 6.42 E/E' Med: 12.00 E' Laterial: 6.85 E/E' Lat: 11.30 Right Ventricle TAPSE (mm): 22.00 TVS' Parth: 13.60 Tricuspid Valve TR Pk Parth: 2.28 TR Pk Grad: 21.00 RA Press: 8.00 RVSP: 29.00 Great Vessels Aorta Sinus of Valsalva: 3.30 2.0-3.5 cm Ao Asc: 3.60 2.1-3.4 cm Pulmonary Valve PV Pk Parth: 0.81 Peak PV Grad: 3.00 Updated in Other Vendor System with Status of Final Ortiz Guerrero MD electronically signed on 06/20/2023 11:20:59 AM with status of Final
--- NOTE | 2023-06-20 08:40 | PC.NURSE ---
report given to Valentin, pt will be transported to [facility] by transporter. pt aware of plan of care.,
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
[2023-06-20] MEDS: Acetaminophen 325 MG TABLET 650 MG PO ×2 (08:59→16:45)
[2023-06-20] MEDS: 0.9 % Sodium Chloride Flush 3 ML SYRINGE IVFLUSH (09:00)
[2023-06-20] MEDS: Enoxaparin Sodium 40 MG/0.4 ML SYRINGE SUBCUT (09:00)
--- NOTE | 2023-06-20 09:11 | PC.NURSE ---
pt resting quietly in bed, prn med given for 910 back pain. denies cp/sob at this time. pt seen by Dr Guerrero.
--- NOTE | 2023-06-20 09:39 | PHA.MEDREC ---
Pharmacy Consult ? Medication Reconciliation Pharmacy has completed the medication reconciliation. MED REC COMPLETE USING LIST PROVIDED BY PATIENT SPOUSE.
[2023-06-20] MEDS: Carbidopa/Levodopa 25/100 TABLET 1 TAB PO ×3 (12:30→20:08)
[2023-06-20 12:32] LABS: INTERNATIONAL NORM RATIO 1.1 (0.9-1.1); Prothrombin Time 13.2 SEC (11.1-13.3)
[2023-06-20 12:34] LABS: PTT Heparin Drip 40.1 SEC (53-77.9)
[2023-06-20] MEDS: Heparin Sodium,Porcine/1/2NS 25,000 UNIT/250 ML IV.SOLN 11.52 UNIT IVCONT (12:41)
--- NOTE | 2023-06-20 12:46 | PC.NURSE ---
Heparin verified by two RNs, PTT 40.1, Heparin drip started at 14 u/kg/hr. pt tolerating well. next PTT due at 1840. pt denies cp/sob/dizziness. vss. pt sitting up in bed eating lunch at this time. will continue to observe.
[2023-06-20 12:48] LABS: Alanine Aminotransferase 100 U/L (0-31); Albumin Level 4.1 g/dL (3.5-5.0); Alkaline Phosphatase 63 U/L (39-117); Aspartate Amino Transferase 97 U/L (5-31); Bilirubin Direct 0.4 mg/dL (0.0-0.5); Total Protein 7.1 g/dL (6.5-8.0)
[2023-06-20 13:55] LABS: Hemoglobin 14.3 g/dl (12.0-16.0); Mean Corpuscular HGB Conc 34.9 g/dl (31.0-35.0); Mean Corpuscular Hemoglobin 30.2 pg (27.0-33.0); Mean Corpuscular Volume 86.7 fL (80.0-98.0); Platelet Count 173 X10*3/uL (160-400); Red Blood Count 4.73 X10*6/uL (4.20-5.50); Red Cell Distribution Width 13.2 % (11.0-16.0)
[2023-06-20 14:11] LABS: INTERNATIONAL NORM RATIO 1.1 (0.9-1.1); Prothrombin Time 13.1 SEC (11.1-13.3)
[2023-06-20 14:14] LABS: PTT Heparin Drip 72.8 SEC (53-77.9)
--- NOTE | 2023-06-20 14:20 | PC.NURSE ---
heparin drip remains at 14 u/kg/hr. pt tolerating well. no complaints.
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
--- NOTE | 2023-06-20 15:16 | PC.NURSE ---
report given to Andie, pt will be transported to [id number] by this rn and transporter. pt aware of plan.
[2023-06-20 16:43] LABS: Glucose, Whole Blood 168 mg/dL (60-115)
[2023-06-20] MEDS: LORazepam 0.5 MG TABLET PO ×2 (16:44→22:54)
[2023-06-20 19:36] LABS: PTT Heparin Drip 91.9 SEC (53-77.9)
[2023-06-20] MEDS: Pravastatin Sodium 80 MG TABLET PO (20:08)
[2023-06-20] MEDS: Cholecalciferol (Vitamin D3) 25 MCG TABLET PO (20:08)
[2023-06-20] MEDS: PARoxetine HCL 30 MG TABLET PO (20:09)
[2023-06-20] MEDS: Loratadine 10 MG TABLET PO (20:09)
[2023-06-20] MEDS: amLODIPine Besylate 5 MG TABLET PO (20:09)
[2023-06-20] MEDS: traZODone HCL 100 MG TABLET 200 MG PO (21:39)
[2023-06-21 02:32] LABS: PTT Heparin Drip 116.8 SEC (53-77.9)
[2023-06-21 04:00] VITALS: BP 135/63; PULSE 82; RESP 18; TEMP 36.8; O2SAT 92
[2023-06-21 04:14] LABS: PTT Heparin Drip 48.1 SEC (53-77.9)
[2023-06-21] MEDS: Levothyroxine Sodium 175 MCG TABLET PO (05:32)
[2023-06-21 06:36] LABS: Prothrombin Time 12.7 SEC (11.1-13.3)
[2023-06-21 06:43] LABS: Cholesterol 136 mg/dL (<200); HDL Cholesterol 37 mg/dL (>40); LDL Cholesterol Calculated 61 mg/dL (<100); Triglycerides 193 mg/dL (<150)
[2023-06-21 06:57] LABS: Hematocrit 38.7 % (37.0-47.0); Hemoglobin 13.3 g/dl (12.0-16.0); Mean Corpuscular HGB Conc 34.4 g/dl (31.0-35.0); Mean Corpuscular Volume 87.2 fL (80.0-98.0); Mean Platelet Volume 9.2 fL (9.4-12.3); Platelet Count 135 X10*3/uL (160-400); Red Blood Count 4.44 X10*6/uL (4.20-5.50); White Blood Count 6.6 X10*3/uL (4.8-10.8)
[2023-06-21 07:47] VITALS: BP 143/68; PULSE 93; RESP 20; TEMP 37.2; O2SAT 96
[2023-06-21] MEDS: Acetaminophen 325 MG TABLET 650 MG PO (07:59)
[2023-06-21] MEDS: Multivitamin TABLET 1 TAB PO (07:59)
[2023-06-21] MEDS: Aspirin Enteric Coated 81 MG TABLET.DR PO (07:59)
[2023-06-21] MEDS: atenoloL 100 MG TABLET PO (07:59)
[2023-06-21] MEDS: Cholecalciferol (Vitamin D3) 25 MCG TABLET PO (07:59)
[2023-06-21] MEDS: Carbidopa/Levodopa 25/100 TABLET 1 TAB PO ×2 (07:59→12:59)
[2023-06-21] MEDS: Ezetimibe 10 MG TABLET PO (07:59)
[2023-06-21] MEDS: LORazepam 0.5 MG TABLET PO (08:11)
--- NOTE | 2023-06-21 08:12 | PC.NURSE ---
per . Dr Roly kaminski to give PRN Ativan 0.5 mg now
[2023-06-21] MEDS: hydrOXYzine HCL 25 MG TABLET PO (09:32)
--- NOTE | 2023-06-21 10:20 | MHC.CM.PN ---
CM met with Patient at bedside and addressed NOE with her, providing Patient with the original and placing a copy on the tyshawn.Patient will be dc/transferred to [facility] today.
[2023-06-21 10:46] LABS: PTT Heparin Drip 51.8 SEC (53-77.9)
[2023-06-21] MEDS: Heparin Sodium,Porcine 5,000 UNIT/ML VIAL 3300 UNIT IVPUSH (10:57)
[2023-06-21 11:09] VITALS: BP 151/67; PULSE 77; RESP 16; TEMP 36.6; O2SAT 95
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
== END 2023-06-21 14:35 | disposition short-term general hospital (02) ==
LOC: HO.ED 06-20 02:03 → HO.EDOVER 06-20 02:36 → HO.IMC 06-20 14:49
PROVIDERS: Internal Medicine; Admitting Provider Student in an Organized Health Care Education/Training Program; Emergency Provider Emergency Medicine; PCP Family Medicine; Visit Provider Internal Medicine
DX: I21.4 Non-ST elevation (NSTEMI) myocardial infarction (principal); R79.89 Other specified abnormal findings of blood chemistry; R68.89 Other general symptoms and signs; R07.9 Chest pain, unspecified; F22 Delusional disorders; T76.91XA Unspecified adult maltreatment, suspected, initial encounter; Y92.9 Unspecified place or not applicable; I10 Essential (primary) hypertension; E03.9 Hypothyroidism, unspecified; I45.10 Unspecified right bundle-branch block; E78.5 Hyperlipidemia, unspecified; G89.4 Chronic pain syndrome; Z11.52 Encounter for screening for COVID-19; Z79.899 Other long term (current) drug therapy
CPT/HCPCS: 36415; 71045; 80048; 80061; 80076; 80307; 81001; 82550; 82947; 84484; 85025; 85027; 85610; 85730; 87086; 87635; 93005; 93306; 96365; 96366; 96372; 99222; 99285; J1643; J1650; Q9957

== ENCOUNTER → 2023-06-20 02:27 | Outpatient (BNV) | payer MEDICARE, OTHER, SELFPAY | PROVIDERS: Admitting Provider Student in an Organized Health Care Education/Training Program; Emergency Provider Emergency Medicine; Visit Provider Student in an Organized Health Care Education/Training Program | DX: I21.4 Non-ST elevation (NSTEMI) myocardial infarction (principal); R79.89 Other specified abnormal findings of blood chemistry | CPT/HCPCS: 99222; 99239; 99499 ==

== ENCOUNTER → 2023-06-20 02:27 | Outpatient (BNV) | payer MEDICARE, OTHER, SELFPAY | PROVIDERS: Admitting Provider Student in an Organized Health Care Education/Training Program; Emergency Provider Emergency Medicine; Visit Provider Internal Medicine | DX: R79.89 Other specified abnormal findings of blood chemistry (principal); I21.4 Non-ST elevation (NSTEMI) myocardial infarction; I34.0 Nonrheumatic mitral (valve) insufficiency | CPT/HCPCS: 93306; 99222; 99233 ==

== ENCOUNTER 2023-07-10 15:09 | Outpatient (AMB) | payer MEDICARE, OTHER, SELFPAY ==
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
[2023-07-10 15:28] VITALS: BP 132/80; PULSE 67; BMI 31.8
== END 2023-07-10 16:07 | disposition home or self-care (01) ==
PROVIDERS: PCP Family Medicine; Visit Provider Nurse Practitioner Family
DX: I21.4 Non-ST elevation (NSTEMI) myocardial infarction (principal); Z98.890 Other specified postprocedural states; I25.10 Atherosclerotic heart disease of native coronary artery without angina pectoris; I10 Essential (primary) hypertension; E78.00 Pure hypercholesterolemia, unspecified
CPT/HCPCS: 99214

== ENCOUNTER → 2023-07-10 15:09 | Outpatient (BNVA) | payer MEDICARE, OTHER, SELFPAY | PROVIDERS: PCP Family Medicine; Visit Provider Nurse Practitioner Family | DX: I21.4 Non-ST elevation (NSTEMI) myocardial infarction (principal); I25.10 Atherosclerotic heart disease of native coronary artery without angina pectoris; I10 Essential (primary) hypertension; E78.00 Pure hypercholesterolemia, unspecified; Z98.890 Other specified postprocedural states | CPT/HCPCS: 99212 ==

== ENCOUNTER 2024-01-16 12:19 | Outpatient (AMB) | payer MEDICARE, OTHER, SELFPAY ==
[2024-01-16 12:51] VITALS: BP 130/62; PULSE 69; BMI 30.4
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
== END 2024-01-16 13:31 | disposition home or self-care (01) ==
PROVIDERS: PCP Family Medicine; Visit Provider Nurse Practitioner Family
DX: I21.4 Non-ST elevation (NSTEMI) myocardial infarction (principal); Z98.890 Other specified postprocedural states; I25.10 Atherosclerotic heart disease of native coronary artery without angina pectoris; I10 Essential (primary) hypertension; E78.00 Pure hypercholesterolemia, unspecified
CPT/HCPCS: 99214

== ENCOUNTER → 2024-01-16 12:19 | Outpatient (BNVA) | payer MEDICARE, OTHER, SELFPAY | PROVIDERS: PCP Family Medicine; Visit Provider Nurse Practitioner Family | DX: I25.2 Old myocardial infarction (principal); I25.10 Atherosclerotic heart disease of native coronary artery without angina pectoris; I10 Essential (primary) hypertension; E78.00 Pure hypercholesterolemia, unspecified; Z98.890 Other specified postprocedural states | CPT/HCPCS: 99212 ==

== ENCOUNTER 2024-07-25 14:36 | Outpatient (AMB) | payer MEDICARE, OTHER, SELFPAY ==
--- NOTE | 2024-07-25 14:38 | A.OFFVIS_ITS ---
Vital Signs 07/25/24 14:53 Height 5 ft 3 in Weight 165 lb BMI 29.2 BP 142/90 H Blood Pressure Location Lt brachial Position Sitting Respiration 16 Pulse 70 Pulse Source Pulse Oximeter Pulse Oximetry (%) 95 Oxygen Delivery Method Room Air Intake Visit Reasons: Knee pain FU request by patient Intake Note: Patient comes in for follow up on knee pain. Reports pain 8-9. Allergies dicyclomine [From Bentyl] Allergy (Mild, Verified 07/25/24 14:55) 5 BLUE LINES ACROSS ABDOMEN prochlorperazine [From Compazine] Allergy (Mild, Verified 07/25/24 14:55) Tongue Swelling, Lock Jaw, Oral swelling shellfish derived Allergy (Mild, Verified 07/25/24 14:55) Diarrhea, swelling, abd pain Sulfa (Sulfonamide Antibiotics) Allergy (Mild, Verified 07/25/24 14:55) RASH, hives HPI Comments Details: Christa is back in my office with a new complaint. She recently fell on her right knee and now complains on pain in the knee. This acute trauma. Physical exam of the knee see as below. overall it is benign. Recommendation : NSAIDs on the clock and lidocain patch OTC. As of her psych eval- she was not able to do it from home due to her computer non-compatibility. She will be invited in the office for the psych evaluation. Prior: She had diagnostic bilateral sacroiliac joint injections which were performed on 11/08/2022. She reports 100% pain improvement for the next 24 hours after the procedure. She reported that her pain came back only after 24 hours. This is excellent results and very promising for the patient. This patient recently diagnosed with Parkinson disease. Therefore in my opinion overall risks of sacroiliac joint steroid injections with need to cover both of the joints with significant doses of long lasting steroids like Kenalog would be significant overall risk for the patient. At the same time peripheral nerve stimulation delfino ears to be good option while SI joint fusion probably would not work because of these patient's advanced age. [facility] Medical History Chronic pain syndrome Sacroiliitis Parkinson disease Postlaminectomy syndrome Schizophrenia Hypothyroid High cholesterol Hypertension Anxiety Depression Surgical History H/O neck surgery S/P appendectomy Previous back surgery Family History Mother Breast cancer Father Liver cancer Social History Household Members: Spouse Housing: House Do you presently have visiting nurse or other home services: No Alcohol intake: never Patient Tobacco Use Status: Never used Tobacco Advance Directives Date on File: 06/07/21 service: No Sexual orientation: Straight/Heterosexual Review of Systems Const All systems reviewed & are unremarkable except as noted in HPI and below ENT Reports Normal hearing present Neuro Reports Normal hearing present and Denies Sensory deficit (Neuro) Physical Exam Vital Signs: Last Vital Signs Pulse 70 07/25/24 14:53 Resp 16 07/25/24 14:53 BP 142/90 H 07/25/24 14:53 Pulse Ox 95 07/25/24 14:53 Oxygen Delivery Method Room Air 07/25/24 14:53 BMI result Body Mass Index 29.2 Const General: well developed, alert, awake, anxious and tired appearing Orientation/consciousness: oriented to person, oriented to place and oriented to time Limitations: physical limitations Eyes Pupils: Equal, round and reactive pupils present EOM: EOMs intact bilaterally Chest Chest palpation & inspection: normal inspection of the chest Resp Effort & Inspection: normal respiratory effort, able to speak in complete sentences, normal respiratory pattern, no audible wheezes, no cough, respiratory effort not decreased and no grunting Cardio Jugular venous distension: no JVD Back/Spine/Pelvis Other: No tenderness on palpation in paraspinal spinal region in lumbar spine. Brady test is positive bilaterally. Samuel finger test is positive bilaterally. Pelvic compression test is positive bilaterally for pain increase in projection of sacroiliac joints. There is very well-healed scar in the lumbar spine in approximate projection of L4-L5 possibly S1 vertebra as. SLR is negative bilaterally. Valsalva maneuver is positive for pain increase in the back. Flexing forward and flexing backwards both aggravate her pain. Neuro Other: Striking mass like face appearance a and tremor in bilateral upper extremities which fades with intentional movements makes me think that patient is suffering from Parkinson disease. General: oriented to person, oriented to place and oriented to time Cranial nerves: Yes Equal, round and reactive pupils present and Yes Normal hearing present Sensory Exam: No Sensory deficit (Neuro) Extrem Other: full range of motion in passive movement of the right knee although she reports minor discomfort. anterior and posterior drawer sign, collateral ligaments tests do not demonstrate instability. Psych Speech and movement: Normal speech and movement present Affect: Indifferent affect present Attitude: cooperative Thought process: Normal thought process present Thought content: Normal thought content present Insight: Fair insight present (Psych) Judgement: Fair judgement present (Psych) Assessment & Plan Assessment & Plan (1) Postlaminectomy syndrome: Code(s): M96.1 - Postlaminectomy syndrome, not elsewhere classified Category: Medical (2) Parkinson disease: Code(s): G20 - Parkinson's disease Category: Medical (3) Sacroiliitis: Code(s): M46.1 - Sacroiliitis, not elsewhere classified Category: Medical (4) Chronic pain syndrome: Code(s): G89.4 - Chronic pain syndrome Category: Medical (5) Right knee pain: Code(s): M25.561 - Pain in right knee Category: Medical Plan Christa is here today for the pain right knee. She reported trauma few days ago. This is acute pain. Physical exam is negative. NSAIDs on the clock were recommended as well as topical lidocaine patch OTC. As of her postlaminectomy syndrome, sacroiliitis bilateral the [employer] will be scheduled in the office, when it is done we will schedule patient for Curonix PNS trial of bilateral sacroiliac joints.. Coding Level of Care Code Est Pt Level 3 (96603) Diagnoses Postlaminectomy syndrome M96.1 Parkinson disease G20 Sacroiliitis M46.1 Chronic pain syndrome G89.4 Right knee pain M25.561
[2024-07-25 14:53] VITALS: BP 142/90; PULSE 70; RESP 16; O2SAT 95; BMI 29.2
== END 2024-07-25 15:06 | disposition home or self-care (01) ==
LOC: HO.PMC 14:36
PROVIDERS: PCP Family Medicine; Visit Provider Anesthesiology
DX: M96.1 Postlaminectomy syndrome, not elsewhere classified (principal); M46.1 Sacroiliitis, not elsewhere classified; G89.4 Chronic pain syndrome; M25.561 Pain in right knee
CPT/HCPCS: 99213

== ENCOUNTER → 2024-07-25 14:36 | Outpatient (BNVA) | payer MEDICARE, OTHER, SELFPAY | PROVIDERS: PCP Family Medicine; Visit Provider Anesthesiology | DX: M25.561 Pain in right knee (principal); G89.4 Chronic pain syndrome; M46.1 Sacroiliitis, not elsewhere classified; M96.1 Postlaminectomy syndrome, not elsewhere classified; G20.A1 Parkinson's disease without dyskinesia, without mention of fluctuations | CPT/HCPCS: 99212 ==

== ENCOUNTER 2025-07-25 16:02 | Emergency (ER) | payer MEDICARE, OTHER, SELFPAY ==
--- NOTE | ~2025-07-25 | CT_ITS ---
CLINICAL HISTORY: low back pain, R sided abdominal pain CT abdomen and pelvis with contrast Comparison: CT - CT ABDOMEN PELVIS WITH IV CONTRAST - 10/18/22 02:34 EST Findings: LIMITED CHEST: Lung bases are clear. LIVER: No focal liver lesion. Nodular liver contour. BILIARY: No gallbladder wall thickening, radiopaque stone, or ductal dilatation. PANCREAS: No mass or ductal dilatation. SPLEEN: No splenomegaly. KIDNEYS: No hydronephrosis or radiopaque stone. Small hypoattenuating lesions, too small to characterize however may represent cysts. ADRENALS: No nodule. VASCULAR: No aneurysm. RETROPERITONEUM: No lymphadenopathy or mass. BOWEL/MESENTERY: No evidence of obstruction. No free fluid or air. Colonic diverticulosis. ABDOMINAL WALL: No mass or significant abnormality. URINARY BLADDER: No focal wall thickening. PELVIC NODES: No pelvic lymphadenopathy. PELVIC ORGANS: Hysterectomy. BONES: No acute fracture. Degenerative changes of the spine. Fusion changes at L4-5. OTHER: Negative. IMPRESSION: Colonic diverticulosis without CT evidence of acute diverticulitis. Degenerative changes of the spine with L4-5 posterior fusion. This document has been electronically signed by: Mora Hong MD on 07/25/2025 20:23:09
[2025-07-25 16:15] VITALS: BP 127/58; PULSE 74; RESP 16; TEMP 36.7; O2SAT 94; BMI 79.6
--- NOTE | 2025-07-25 16:16 | ED.BACK ---
HPI - Back Pain/Injury General Chief Complaint: Back Pain/Injury Stated Complaint: Back pain Time Seen by Provider: 07/25/25 17:58 Source: patient and old records reviewed Mode of arrival: ambulatory Limitations: no limitations History of Present Illness ED Provider: JON SALEH Narrative: 75-year-old female with past medical history of Parkinson's disease, anxiety depression, schizophrenia, hypertension, high cholesterol, coronary artery disease, chronic pain syndrome, hypothyroidism, not on blood thinners here with complaint right-sided low back pain that shoots down to her right foot, and causes tingling of the toes at times. She denies any prior trauma. She does have known back issues and takes tramadol daily but this is not helping with the pain. She has had prior surgeries with Dr. Castro at [facility] in the past but is unclear exactly what she had done. She denies any fevers, bowel or bladder incontinence, discrete saddle anesthesia-she did note about 5+ days ago she sat on the toilet and she felt some tingling in her private area but that has since resolved. Her spouse mentioned that she has had issues for 1+ month. She states she has pain as well that radiates to the right lower quadrant but has no fevers, nausea, vomiting, diarrhea, urinary symptoms. She has been increasingly weak and unsteady walking and reports falling but did not hit her head, and did not have any head strike MD elicited complaint: back pain Pertinent past history: prior back pain Onset (ago): month(s) (It appears maybe possibly 1 month) Timing: constant Severity: severe Similar Symptoms Previously: Yes Quality: sharp and aching Location: lumbar spine Radiation: abdomen and right leg below the knee Exacerbating factors: movement Relieving factors: none Context: unknown Associated symptoms: weakness, fatigue and difficulty walking Related Data Home Medications ?Medication ?Instructions ?Recorded ?Confirmed acetaminophen 500 mg tablet 500 mg PO BID PRN Pain 06/20/23 01/16/24 amlodipine 5 mg tablet 1 tab PO BEDTIME 06/20/23 01/16/24 calcium 600 mg-D3 20 mcg-magnesium 1 tab PO DAILY@1500 06/20/23 01/16/24 50 af-Ya-oltbvt-rae-boron tablet (Calcium 600-D3 Plus (mag-zinc)) cholecalciferol (vitamin D3) 25 25 mcg PO BID 06/20/23 01/16/24 mcg (1,000 unit) capsule (Vitamin D3) cinnamon bark 500 mg capsule 500 mg PO BID 06/20/23 01/16/24 (Cinnamon) coenzyme Q10 200 mg capsule 200 mg PO BID 06/20/23 01/16/24 diclofenac sodium 3 % topical gel 1 appl topical BID 06/20/23 01/16/24 ezetimibe 10 mg tablet 1 tab PO DAILY 06/20/23 01/16/24 levothyroxine 175 mcg tablet 1 tab PO DAILY@0600 06/20/23 01/16/24 (Synthroid) loratadine 10 mg tablet 1 tab PO BEDTIME 06/20/23 01/16/24 lorazepam 0.5 mg tablet 0.5 mg PO BID PRN Anxiety 06/20/23 01/16/24 lutein 20 mg tablet 20 mg PO BID 06/20/23 01/16/24 multivitamin-ferrous 1 tab PO DAILY 06/20/23 01/16/24 fumarate-folic acid 18 mg-400 mcg tablet -hdc-ppz-other fhelk4q-rwkl 1 cap PO BID 06/20/23 01/16/24 oil 350 mg-400 mg capsule paroxetine HCl 30 mg tablet 30 mg PO BEDTIME 06/20/23 01/16/24 pravastatin 80 mg tablet 1 tab PO BEDTIME 06/20/23 01/16/24 trazodone 50 mg tablet 200 mg PO BEDTIME PRN Insomnia 06/20/23 01/16/24 Previous Rx's ?Medication ?Instructions ?Recorded atenolol 100 mg tablet 1 tab PO DAILY 30 days #30 tabs 06/04/21 aspirin 81 mg tablet,delayed 81 mg PO DAILY #1 tab 06/21/23 release lisinopril 2.5 mg tablet 2.5 mg PO DAILY #90 tabs 09/06/23 topiramate 25 mg tablet 25 mg PO .COMPLEX #90 tabs 04/09/25 carbidopa 25 mg-levodopa 100 mg 1 tab PO QID #360 tabs 05/12/25 tablet cefuroxime axetil 250 mg tablet 250 mg PO BID 7 days #14 tabs 07/25/25 oxycodone 5 mg tablet 5 mg PO Q6H PRN pain #12 tabs 07/25/25 Allergies Allergy/AdvReac Type Severity Reaction Status Date / Time dicyclomine (From Bentyl) Allergy Mild 5 BLUE Verified 07/25/25 16:16 LINES ACROSS ABDOMEN prochlorperazine (From Allergy Mild Tongue Verified 07/25/25 16:16 Compazine) Swelling, Lock Jaw, Oral swelling shellfish derived Allergy Mild Diarrhea, Verified 07/25/25 16:16 swelling, abd pain Sulfa (Sulfonamide Allergy Mild RASH, hives Verified 07/25/25 16:16 Antibiotics) Review of Systems Review of Systems: Constitutional : No Weight loss, No Fever, No Chills, ENT/Mouth : No Hearing loss, No Ear Pain, No Nasal Congestion, No Sinus Pain, No Hoarseness, No sore throat, No Rhinorrhea, No Swallowing Difficulty Cardiovascular : No Chest Pain, No SOB Respiratory : No Cough, No Dyspnea Gastrointestinal : No Nausea, No Vomiting, No Diarrhea, positive abdominal Pain, No Hematochezia, No Melena Genitourinary : No Dysuria, No Urinary Frequency, No Hematuria, No Urinary Incontinence, Musculoskeletal : positive back pain Skin : No Skin Lesions, No rash Neuro : Positive Weakness, No Numbness, No Paresthesias, no loss of bowel or bladder incontinence, no saddle anesthesia Yes all other systems are reviewed and are negative PMFSH Past Medical History Attestation statement: The following information was validated with the patient. Source: old records reviewed Medical History Chronic pain syndrome Sacroiliitis Parkinson disease Postlaminectomy syndrome Schizophrenia Hypothyroid High cholesterol Hypertension Anxiety Depression Surgical History H/O neck surgery S/P appendectomy Previous back surgery Family History Family History Mother Breast cancer Father Liver cancer Social History Social History Household Members: Spouse Housing: House Do you presently have visiting nurse or other home services: No Alcohol intake: never Patient Tobacco Use Status: Never used Tobacco Advance Directives Date on File: 06/07/21 service: No Sexual orientation: Straight/Heterosexual Physical Exam Vital Signs: Vital Signs: Last Vital Signs Temp 97.7 F 07/25/25 20:03 Pulse 74 07/25/25 20:03 Resp 20 07/25/25 18:00 BP 131/62 07/25/25 20:03 Pulse Ox 92 07/25/25 20:03 O2 Del Method Room Air 07/25/25 20:03 BMI result Body Mass Index 79.6 Appearance: Alert. Oriented X3. No acute distress. Flat affect Eyes: Pupils equal, round and reactive to light. ENT: Pharynx normal. Neck: Normal inspection. Neck supple. CVS: Normal heart rate and rhythm. Pulses normal. Respiratory: No respiratory distress. Breath sounds normal. Abdomen: Soft and mild right lower quadrant tenderness to palpation but no rebound no mass felt Back: Right-sided lateral lumbar tenderness to palpation Skin: Skin warm and dry. Normal skin color. Normal skin turgor. Extremities: No lower extremity edema. Neuro: Oriented X 3. No motor deficit. No sensory deficit. Her deep tendon reflexes are intact patella and Achilles 2+ each, she has felt in inner thigh, she has distal 5/5 strength in both lower extremities Course Course Course Narrative: This is an RME: Additional HPI, ROS, PE not included below will be deferred to primary provider. RME assessment and note performed by: Arina Petit PA-C This is a 44-[id number]-female, NSTEMI, HTN, HLD, parkinson, MDD, postlaminectomy, who presents to the ER with a complaint of severe low back pain which started today. Patient reports that the pain starts in her low back and radiates into her right flank. She does report urinary or bowel incontinence however states that this is not a new symptom. Patient was called in his an expected they are concerned due to bladder and bowel incontinence. Patient also has had increased weakness to her lower extremities with increased falls, no head strike or LOC. Patient with tenderness palpation diffusely throughout the lower musculature. Endorsing some nausea, no vomiting. No fevers or chills. No urinary symptoms. Plan: Labs, UA, further ER evaluation needed. Medications Administered Discontinued Medications Generic Name Dose Route Start Last Admin Trade Name Freq PRN Reason Stop Dose Admin Cefuroxime Axetil 250 mg 07/25/25 21:01 07/25/25 21:40 Cefuroxime Axetil 250 Mg Tablet PO 07/25/25 21:02 250 mg ONCE ONE Administration Hydromorphone HCl 1 mg 07/25/25 19:39 07/25/25 19:53 Hydromorphone Hcl 1 Mg/Ml Syringe IVPUSH 07/25/25 19:40 1 mg ONCE ONE Administration Protocol Iohexol 100 ml 07/25/25 19:29 07/25/25 19:29 Iohexol 350 Mg/Ml 100 Ml Infus..Btl IV 07/25/25 19:30 85 ml ONCE ONE Administration Morphine Sulfate 4 mg 07/25/25 18:00 07/25/25 18:21 Morphine Sulfate 4 Mg/Ml Cartridge IVPUSH 07/25/25 18:01 4 mg ONCE ONE Administration Protocol Ondansetron HCl 4 mg 07/25/25 18:00 07/25/25 18:21 Ondansetron Hcl 4 Mg/2 Ml Vial IVPUSH 07/25/25 18:01 4 mg ONCE ONE Administration Potassium Chloride 40 meq 07/25/25 18:00 07/25/25 18:20 Potassium Chloride Er 20 Meq Tab.Er.Prt PO 07/25/25 18:01 40 meq ONCE ONE Administration Medical Decision Making Medical Decision Making [facility] Narrative: 75-year-old female with past medical history of Parkinson's disease, anxiety depression, schizophrenia, hypertension, high cholesterol, coronary artery disease, chronic pain syndrome, hypothyroidism, not on blood thinners here with complaint of right-sided lower back pain radiating down the right leg with tingling in the foot on exam she is neurovascularly intact, she has no bowel bladder incontinence no saddle anesthesia at this time. I have ordered IV pain control, I have ordered a CT scan given the right lower quadrant pain, and ordered a urine as well. She has no signs of cauda equina or cord impingement on my exam in her abdomen while she does have mild right lower quadrant tenderness has no severe tenderness or pain on exam to suggest ischemia, aortic pathology, appendicitis Differential Diagnosis Differential Diagnoses: The differential diagnosis associated with the presentation includes Lumbar radiculopathy, renal colic, chronic pain syndrome Admission/Observation Consideration of admission/observation: Escalation of care including admission/observation considered She has a mild UTI but no other systemic symptoms she has a normal WBC count I will change her pain medications for the next few days, started on oral antibiotics for UTI, instructed to follow up with her spinal surgeon Lab Data [facility] Lab Attestation statement: I reviewed the patient's lab results. Potassium 3.1 given oral potassium to replete 07/25/25 16:30 07/25/25 16:30 Labs: Lab Results 07/25/25 07/25/25 Range/Units 16:30 20:33 WBC 9.4 (4.8-10.8) X10*3/uL RBC 4.29 (4.20-5.50) X10*6/uL Hgb 12.9 (12.0-16.0) g/dl Hct 35.5 L (37.0-47.0) % MCV 82.8 (80.0-98.0) fL MCH 30.1 (27.0-33.0) pg MCHC 36.3 H (31.0-35.0) g/dl RDW 13.2 (11.0-16.0) % Plt Count 171 D (160-400) X10*3/uL MPV 8.1 L (9.4-12.3) fL Immature Gran % (Auto) 0.3 (0.0-0.4) % Neut % (Auto) 59.6 (45-73) % Lymph % (Auto) 29.9 (20-40) % [place] % (Auto) 8.2 (2-11) % Eos % (Auto) 1.5 (0-4) % Baso % (Auto) 0.5 (0-2) % Lymph # (Auto) 2.8 (1.2-4.9) X10*3/uL [place] # (Auto) 0.8 (0.1-1.2) X10*3/uL Eos # (Auto) 0.1 (0.0-0.4) X10*3/uL Baso # (Auto) 0.1 (0.0-0.2) X10*3/uL Abs Immat Gran (auto) 0.03 (0.00-0.03) X10*3/uL Absolute Neuts (auto) 5.6 (2.0-8.3) x10*3/uL Absolute Nucleated RBC 0.000 (0.0-0.012) X10*3/uL Nucleated RBC % (auto) 0.0 (0.0-0.2) /100WBC Sodium 139 (135-145) mmol/L Potassium 3.1 L (3.3-5.1) mmol/L Chloride 102 (96-108) mmol/L Carbon Dioxide 28 (22-29) mmol/L Anion Gap 12 (12-20) BUN 5 L (9-16) mg/dL Creatinine 0.80 (0.5-1.4) mg/dL Estim Creat Clear Calc 19.9 Estimated GFR > 60 Random Glucose 111 (60-115) mg/dL Calcium 9.0 D (8.4-10.2) mg/dL Magnesium 1.8 (1.6-2.6) mg/dL Total Bilirubin 1.0 (0.0-1.0) mg/dL Direct Bilirubin 0.4 (0.0-0.5) mg/dL AST 28 (5-31) U/L ALT 6 (0-31) U/L Alkaline Phosphatase 57 (39-117) U/L Total Protein 6.6 (6.5-8.0) g/dL Albumin 4.2 (3.5-5.0) g/dL Lipase 29 (8-78) U/L Urine Color Yellow Urine Appearance Clear Urine pH 7.0 (5.0-9.0) Ur Specific [place] 1.020 (1.005-1.025) Urine Protein Negative (Neg-Trace) mg/dL Urine Glucose (UA) Negative (Negative) mg/dL Urine Ketones Negative (Negative) mg/dL Urine Blood Negative (Negative) Urine Nitrite Negative (Negative) Ur Leukocyte Esterase Moderate (2+) H (Negative) Urine RBC 0-2 (0-2) /HPF Urine WBC 11-20 H (0-5) /HPF Ur Squamous Epith Cells 0-2 (0-2) /HPF Urine Bacteria 4+ (None Seen) Hyaline Casts 0-2 (0-2) /LPF Independent Interpretation I performed an independent interpretation of an: CT Scan (No acute cause of pain) Radiology Impression Discussion of test interpretation with radiology: I have reviewed the radiologist's reading. External Record Review External record reviewed: Inpatient record and Outpatient record Prescription Management I considered prescription management with: Pain Medication, Antibiotic and Other Critical Care Time Critical Care Time Critical Care Time: Yes Total Critical Care Time: 35 Attestation: Time is exclusive of separately billable procedures. Time includes: direct patient care, patient reassessment, coordination of patient care, interpretation of data (laboratory data, pulse oximetry, CT scans), review of patient's medical records, medical consultation and documentation of patient care. Repeat IV morphine/Dilaudid with improvement in pain Procedures excluded from critical care time: electrocardiography. I attest to this time spent taking care of the patient Discharge Plan Discharge Clinical Impression: Acute left lumbar radiculopathy, Acute UTI Patient Disposition: Home, Self-Care Instructions: Urinary Tract Infection in Women (ED), Lumbar Radiculopathy (ED) Additional Instructions: Your labs are reassuring Your urine does have signs of infection Your CT scan showed chronic diverticular disease but otherwise no active infection, and no abnormality of your hardware At this time hold her tramadol and we will give a short course of stronger analgesia Your next dose of antibiotics is tomorrow morning Return for any worsening symptoms or concerns On a cephalosporin?antibiotic, softer bowel movements are to be expected. Call your provider if you move your bowels more than 4 times a day, your bowel movements are almost all liquid, or you get a rash.?? Prescriptions: New cefuroxime axetil 250 mg tablet 250 mg PO BID 7 Days Qty: 14 0RF oxycodone 5 mg tablet 5 mg PO Q6H PRN (Reason: pain) Qty: 12 0RF Rx Instructions: Partial Fill upon patient request. HOLD tramadol No Action lisinopril 2.5 mg tablet 2.5 mg PO DAILY Qty: 90 3RF topiramate 25 mg tablet 25 mg PO .COMPLEX Qty: 90 1RF Rx Instructions: 25 mg orally one at night; carbidopa-levodopa 25-100 mg tablet 1 tab PO QID Qty: 360 0RF atenolol 100 mg tablet 1 tab PO DAILY 30 Days Qty: 30 0RF trazodone 50 mg tablet 200 mg PO BEDTIME PRN (Reason: Insomnia) paroxetine HCl 30 mg tablet 30 mg PO BEDTIME levothyroxine [Synthroid] 175 mcg tablet 1 tab PO DAILY@0600 diclofenac sodium 3 % gel 1 appl topical BID Protocol: Apply to: Apply to: BACK amlodipine 5 mg tablet 1 tab PO BEDTIME pravastatin 80 mg tablet 1 tab PO BEDTIME lorazepam 0.5 mg tablet 0.5 mg PO BID PRN (Reason: Anxiety) loratadine 10 mg tablet 1 tab PO BEDTIME ezetimibe 10 mg tablet 1 tab PO DAILY acetaminophen 500 mg Tablet 500 mg PO BID PRN (Reason: Pain) cholecalciferol (vitamin D3) [Vitamin D3] 25 mcg (1,000 unit) Capsule 25 mcg PO BID cinnamon bark [Cinnamon] 500 mg Capsule 500 mg PO BID coenzyme Q10 200 mg Capsule 200 mg PO BID qbmgwaejnbuh-nezq-zhjce acid 18-400 mg-mcg Tablet 1 tab PO DAILY iazax-4n-ghg-epa-fish oil 350-400 mg Capsule 1 cap PO BID lutein 20 mg Tablet 20 mg PO BID Rx Instructions: give with meal/snack Ca-D3-mag nv-uano-exg-shilpi-bor [Calcium 600-D3 Plus (mag-zinc)] 600 mg calcium- 20 mcg-50 mg Tablet 1 tab PO DAILY@1500 aspirin 81 mg Tablet,Delayed Release (Dr/Ec) 81 mg PO DAILY Qty: 1 0RF Interventions: Admission Worksheet (ED) Last Done: 07/25/25 19:17 Discharge Date/Time: 07/25/25 22:06 Print Language: Bangladeshi
[2025-07-25 16:33] LABS: MANUAL DIFF FLAG NO
[2025-07-25 16:36] LABS: Hematocrit 35.5 % (37.0-47.0); Hemoglobin 12.9 g/dl (12.0-16.0); Imm Gran Abs Auto 0.03 X10*3/uL (0.00-0.03); Imm Gran Pct Auto 0.3 % (0.0-0.4); Lymphocytes Absolute Auto 2.8 X10*3/uL (1.2-4.9); Mean Corpuscular HGB Conc 36.3 g/dl (31.0-35.0); Mean Corpuscular Hemoglobin 30.1 pg (27.0-33.0); Mean Corpuscular Volume 82.8 fL (80.0-98.0); NRBC Abs Auto 0.000 X10*3/uL (0.0-0.012); NRBC Pct Auto 0.0 /100WBC (0.0-0.2); Platelet Count 171 X10*3/uL (160-400); Red Blood Count 4.29 X10*6/uL (4.20-5.50); White Blood Count 9.4 X10*3/uL (4.8-10.8)
[2025-07-25 16:52] LABS: Alanine Aminotransferase 6 U/L (0-31); Albumin Level 4.2 g/dL (3.5-5.0); Alkaline Phosphatase 57 U/L (39-117); Anion Gap 12 (12-20); Aspartate Amino Transferase 28 U/L (5-31); Blood Urea Nitrogen 5 mg/dL (9-16); Calcium 9.0 mg/dL (8.4-10.2); Carbon Dioxide 28 mmol/L (22-29); Chloride 102 mmol/L (96-108); Creatinine Clr Calc Pharmacy 19.9; Estimated Glomerular Filt Rate > 60; Lipase 29 U/L (8-78); Magnesium 1.8 mg/dL (1.6-2.6); Potassium 3.1 mmol/L (3.3-5.1); Sodium 139 mmol/L (135-145); Total Protein 6.6 g/dL (6.5-8.0)
[2025-07-25 18:00] VITALS: BP 132/60; PULSE 70; RESP 20; O2SAT 96
--- OUTSIDE RECORDS SUMMARY | 2025-07-25 18:06 | XMS_ITS | Clinical Summary ---
Author Organization [facility] Address [address] [address] Phone Care Team Providers Care Entry Table Operator Name Role Phone Grayson Tam MD Primary Care Provider + Social History Tobacco Use Types Packs/Day Years Used Date Smoking Tobacco: Never Assessed Education Answer Date Recorded Are you interested in more education? Not on enrique e 10/05/2023 Are you concerned about learning? Not on file 10/05/2023 No 10/05/2023 No 10/05/2023 Digital Access Answer Date Recorded No 10/05/2023 No 10/05/2023 Reliable internet access at home? Not on file 10/05/2023 Device with a working camera? Not on file Comments Unknown Sex and Gender Information Value Date Recorded Sex Assigned at Not on file Legal Sex Female 10:02 PM EDT Gender Identity Not on file Sexual Orientation Not on file Plan of Treatment Health Maintenance Due Date Last Done Comments Adult Td,Tdap Booster 1950 LIPID PANEL 1950 DEPRESSION SCREENING 1962 SMOKING Hx and SMOKELESS TOB ACCO SCREENING 1963 HEPATITIS C SCREENING 02/12/1968 COLOGUARD 1995 COLONOSCOPY 1995 COLORECTAL CANCER SCREENING 1995 FIT TEST 1995 FOBT 1995 SIGMOIDOSCOPY 1995 VIRTUAL COLONOSCOPY 1995 PNEUMOCOCCAL VACCINES (50+ y ears) (1 of 1 - PCV) 02/12/2000 ZOSTER VACCINES (1 of 2) 02/12/2000 OSTEOPOROSIS SCREENING INITI AL (ONE-TIME) 2015 RSV VACCINE (1 - 1-dose 75+ series) 2025 INFLUENZA VACCINE (#1) 2025 COVID-19 VACCINE ( - 2024-2 6 season) 2025 HEPATITIS A VACCINES Aged Out No long er eligible based on patient's age to complete this topic HIB VACCINES Aged Out No longer eligi ble based on patient's age to complete this topic MENINGOCOCCAL VACCINES (ACWY) Aged Out No longer eligible based on patient's age to complete this topic MENINGOCOCCAL VACCINES (B) Aged Out N o longer eligible based on patient's age to complete this topic Medical Devices Not on file [place] [facility] [place] B [facility] MED[facility] PART [facility] & B [facility] MEDIC[facility] PART A & B Member Subscriber Plan / Payer (Ef fective 2011-Present) Name:Christa Singletary Member ID:[id number] Relation to Subscriber:Self Name:Christa Singletary Subscriber ID:[id number] Payer ID:[id number] Group ID:Not on file Type:Medicare Address: [employer] [facility] [address] [place] [phone] Care Teams Entry Table Operator Relationship Specialty Start Date End Date Grayson Tam MD [address] [place] [id number] PCP - General Physical Medicine and Rehabilitation 10/05/23 Additional Source Comments The information contained in this document represents components of the legal health record. It is not the complete legal health record.[facility]
--- OUTSIDE RECORDS SUMMARY | 2025-07-25 18:06 | XMS_ITS | Data Portability ---
Author Organization [place] - [facility] Address [address] [place] [id number] Care Team Providers Care Brand Ambassador Name Role Phone RAFAEL CATRACHITO Primary Care Provider Assessment Encounter Date Assessment Date Assessment LastModified by Organization Details LastModified Time 05/21/2020 05/21/2020 Overview/History : Pt is a 70yo F with PMH sig for Depression, HLD, HTN, Dementia and hypothyroidism. Last week pt fell out of bed and landed on the floor. Pt has previously had back surgery and reports pain to the low back and the right hip/buttock. Pt's would like xrays ordered for further evaluation. Exam: Pt is A/Ox2, non-toxic appearing, VSS, HRR, resp reg and unlabored on RA, lungs CTA bilat. Pt noted to have guarded movements when rolling over in bed. Pt noted to have normal ROM of bilat LE, strength against resistence in the right leg is less than the left, Pain present with passive and active ROM of the right hip. Right foot noted to externally rotate when ambulating. DDx considered, but not limited to: Low back strain: possible given recent falls out of the bed with reports of back pain Hip fracture: possible given external rotation of the right foot while ambulating, pain in the right hip and buttock with right straight leg raise both passive and against resistance. Sprain: possible given recent falls from bed and pt still being able to ambulate well. Work up/Results: Xray Lumbar Spine: pending Xray right hip: pending Plan/Discussion: Pt advised to use heat/ice and APAP to help with pain. Xrays ordered for further evaluation to make sure that there is no fracture. Pt's mobility is good, no signs of severe pain or abnormalities noted on exam, at this time outpatient work up is most appropriate. Patients PCP contacted and updated on patient status. Patient verbalized understanding of discharge instructions and when to follow up with PCP/911/ED as needed. Patient in agreement with current plan and treatment. Time On Scene with Patient: 00:29:08 leia Not available 05/21/2020 20:23:40 Plan of Treatment Reminders Order Date Submit Date Provider Last Modified By Organization Details Last Modified Time Details Appointments None recorded. Lab None recorded. Referral None recorded. Procedures None recorded. Surgeries None recorded. Imaging XR, lumbosacral spine, 2 or 3 view 2019 020 [email or web address] [facility] ([facility] [address] [place], [address], 0 20:41:29 unlisted imaging order - hip uni W or w/o pelvis 2-3 V-RT 2019 020 [email or web address] [facility] ([facility]), [address] [place], [address], 0 20:41:29 Medication Orders None recorded. Patient TargetsNo targets recorded. Patient Instructions Encounter Date Encounter Id Patient Instructions Last Modified By Organization Details Last Modified Time 05/21/2020 [id number] Back Pain - Discharge Instructions Basic Information: Back pain is a common problem, and has many different causes. Most back pain will improve within 2 weeks of onset. Common causes include lifting, twisting movements, overuse, unusual movements, stress, prolonged sitting, poor posture, being overweight and less commonly structural issues such as disc problems(sciatica) or fractures. X-rays and MRI s are rarely indicated unless there has been significant trauma, if you are having certain abnormal neurologic abnormalities, or if you have certain underlying medical conditions that can cause spinal problems. Instructions: Avoid heavy lifting, bending ,twisting or prolonged sitting. Be as active as you can comfortably be, walking often makes back pain feel better. Be sure to change position at least every 2 hours to avoid stiffening up. BED REST IS NOT RECOMMENDED FOR BACK PAIN AND WILL MAKE YOU FEEL WORSE! Ice for 15 minutes every 2 hours and after 48 hours you may alternate with moist heat for 15 minutes. DO NOT FALL ASLEEP ON THE HEATING PAD, this will cause the area to swell and hurt more! When getting out of bed, roll to your side, and dangle your legs over the edge of the bed while pushing up with your hand and elbow to a seated position. Place a pillow between your knees while lying on your side, and under your legs when lying on your back to remove stress from the spine. Practice good posture as much as you are able, shoulders back, head up, abdomen pulled in. Gentle stretching, lie on your back and gently hug your knees. When you are feeling better there are many exercises that can help you treat and prevent low back pain, check with your Provider. If you are having pain/numbness going down your legs the Tonya exercises are designed to relieve this pain, you can find demonstrations on [employer] loss will help to relieve stress on your back. Smoking can make back pain worse, try to limit or quit smoking, check with your provider about methods to help stop smoking. Medications: Based on your history and examination your provider will design a medication regimen specifically for your condition, this may include some of the following medications. Acetaminophen/Tyle nol: 650mg every 4 hours if you do not have any liver issues. Non-steroidal anti inflammatories/NSA IDS: These category includes ibuprofen (Motrin. Advil) and Naproxen (Aleve/Naprsoyn) and other medications. Anti-inflammatorie s are powerful pain relievers and the first line treatment for back pain. NSAID s should be taken with food. People with kidney disease, hypertension or on blood thinners should not take these medications. Other medications may be prescribed, if they contain muscle relaxants or narcotic pain relievers DO NOT DRINK ALCOHOL, DRIVE OR OPERATE HEAVY MACHINERY WHILE TAKING THESE MEDICATIONS! Follow Up: You will need to follow up with your PCP for reevaluation within a few days If your back pain persists for more than 2 months or your condition deteriorates you may require further evaluation and testing. If you experience worsening and persistent numbness/weakness/ tingling, have numbness of your genitals, inability to urinate or losing urine, severe pain, fever more than 101.5, or are worse go to the ER for further evaluation. If you have additional concerns or develop a change in your condition between 8am-10pm, please call [facility] at [phone] to help navigate your care. leia Not available 05/21/2020 19:51:04 Reason for Referral None Reported. Results Created Date Observation Date Name Description Value Unit Range Abnormal Flag Note LastModifiedBy Organization Detail LastModifiedTime 05/22/20 20 05/22/2020 lumba r spine AP and lat LUMBAR SPINE AP and LAT FINDIN GS: There is prior interb kassandra fusion at L4/5, with medical auditor ior instru mentat ion. There is otherw ise normal lumbar verteb ral body alignm ent, withou t sublux ation. Verteb ral body height s are normal , withou t eviden ce of fractu re. There are no suspic ious lytic or sclero tic lesion s. There is mild margin al osteop hyte format ion and loss of disk height . There are extens fransisco athero sclero tic calcif icatio ns. CONCLU MANUELA: Prior L4/5 fusion , withou t visibl e compli cation . Mild degene ration of the remini ng lumbar spine. No fractu re. ELECTR ONICAL LY SIGNED BY NASRIN BRICE M.D. 05/22/20 10:32: 59 AM EDT. [facility] ([facility]) [address] , [place], [address], 05/22/2020 16:54:06 05/22/20 20 05/22/2020 hip uni W or w/o pelvi s 2-3 V HIP UNI W OR W/O PELVIS 2-3 V, RIGHT FINDIN GS: The right hip joint is intact , withou t fractu re or disloc ation. The visual ized pelvis and pubic rami are intact . There is underl shay hip degene ration , with very mild joint space narrow ing and osteop hyte format ion. There are no suspic ious lytic or sclero tic lesion s. The soft tissue s are unrema rkable . CONCLU MANUELA: Very mild osteoa rthrit is of the right hip. No fractu re. ELECTR ONICAL LY SIGNED BY NASRIN BRICE M.D. 05/22/20 10:32: 59 AM EDT. LUMBAR SPINE AP and LAT Result s: There is prior interb kassandra fusion at L4/5, with medical auditor ior instru mentat ion. There is otherw ise normal lumbar verteb ral body alignm ent, withou t sublux ation. Verteb ral body height s are normal , withou t eviden ce of fractu re. There are no suspic ious lytic or sclero tic lesion s. There is mild margin al osteop hyte format ion and loss of disk height . There are extens fransisco athero sclero tic calcif icatio ns. Conclu manuela: Prior L4/5 fusion , withou t visibl e compli cation . Mild degene ration of the remini ng lumbar spine. No fractu re. Electr onical ly signed by NASRIN BRICE M.D. 05/22/20 10:32: 59 AM EDT. HIP UNI W OR W/O PELVIS 2-3 V, RIGHT Result s: The right hip joint is intact , withou t fractu re or disloc ation. The visual ized pelvis and pubic rami are intact . There is underl shay hip degene ration , with very mild joint space narrow ing and osteop hyte format ion. There are no suspic ious lytic or sclero tic lesion s. The soft tissue s are unrema rkable . Conclu manuela: Very mild osteoa rthrit is of the right hip. No fractu re. Electr onical ly signed by NASRIN BRICE M.D. 05/22/20 10:32: 59 AM EDT. [email or web address] [facility] ([facility]) [address] [facility], [place], [address], 05/22/2020 16:54:07 Result Notes None recorded. Medical Equipment None Reported. Allergies Allergen ID Allergen Name Allergen Category Reaction Reaction Severity Criticality Documentation Date Start Date Code Code System Note Provider Name and Address Organization Details Recorded Time [id number] Compazine medicatio n Not available Not available Not available 05/21/2020 6 RxNorm AMARA SHANKS , [facility] [address], [facility] [place], [address], [place] - [facility] 0 19:30:50 [id number] Bentyl medicatio n Not available Not available Not available 05/21/2020 8 RxNorm AMARA CHRISTINEADEEL , [employer] [address], [place], [address], [place] [facility] 0 19:30:57 [id number] Substance with sulfonami de structure and antibacte rial mechanism of action (substanc e) medicatio n Not available Not available Not available 05/21/2020 [id number] SNOMED AMARA DIMITRIS , [employer] [address], [place], [address], [place] [facility] 0 19:31:08 [id number] shellfish derived food,medi cation Not available Not available Not available 05/21/2020 AMARA DIMITRIS , [employer] [address], [place], [address], [place] [facility] 0 19:31:17 Medications Name Sig Start Date Stop Date Status Note LastModified by Organization Details LastModified Time amoxicillin 500 mg capsule 05/21 completed Not Available Not Available Not Available levothyroxine 175 mcg tablet active Not Available Not Availab le Not Available benztropine 0.5 mg tablet 05/21 completed Not Available Not Available Not Available azithromycin 250 mg tablet 05/21 completed Not Available Not Available Not Available atenolol 100 mg tablet active Not Available Not Available Not Available donepezil 10 mg tablet 05/21 completed Not Available Not Available Not Available prednisone 20 mg tablet 05/21 completed Not Available Not Available Not Available clonazepam 1 mg tablet active Not Available Not Available Not Available amlodipine 5 mg tablet active Not Available Not Available Not Available ziprasidone 20 mg capsule 05/21 completed Not Available Not Available Not Available pravastatin 80 mg tablet active Not Available Not Available No t Available benzonatate 100 mg capsule 05/21 completed Not Available Not Available Not Available paroxetine 20 mg tablet active Not Available Not Available Not Available ziprasidone 40 mg capsule 05/21 completed Not Available Not Available Not Available albuterol sulfate HFA 90 mcg/actuation aerosol inhaler 05/21 completed Not Available Not Available Not Available carbidopa 25 mg-levodopa 100 mg tablet 05/21 completed Not Available Not Available Not Available ezetimibe 10 mg tablet active Not Available Not Available Not Available bupropion HCl XL 150 mg 24 hr tablet, extended release 05/21 completed Not Available Not Available Not Available nitrofurantoin monohydrate/macr ocrystals 100 mg capsule 05/21 completed Not Available Not Available Not Available Co Q-10 active Not Available Not Avail able Not Available Vitamin D active Not Available Not Linnea ilable Not Available [place] 3 active Not Available Not Avail able Not Available multivitamin active Not Available Not Available Not Available lutein active Not Available Not Availa ble Not Available zeaxanthin (bulk) active Not Available Not Available Not Available Shingrix (PF) 50 mcg/0.5 mL intramuscular suspension, kit ADM 0.5M L IM UTD 05/21 completed Not Available Not Available Not Available Vitals Date Recorded Respiratory rate Body temperature Oxygen saturation Oxygen saturation in Arterial blood by Pulse oximetry Heart rate Systolic And Diastolic Provider Name and Address Organization Details Last Updated DateTime 0 18 /min 98.5 [degF] 95 % 95 % 60 /min 146/74 mm[Hg] Not Available [facility] 0 19:31:58 Social History Question Answer Notes LastModified by Organizat ion Details LastModified Time Tobacco Smoking Status Never Smoker AMARA SHANKS, [facility] [address], [place], [address], [place] - [facility] 05/21/2020 19:38:36 Do You Have An Advance Directive? Yes Information not available 05/21/2020 What Is Your Code Status? Full Code Information not available 05/21/2020 Within The Past 12 Months, Has It Happened That The Food You Bought Just Didn't Last And You Didn't Have Money To Get More. No Information not available 05/21/2020 Within The Past 12 Months, Have You Worried That Your Food Would Run Out Before You Got Money To Buy More. No Information not available 05/21/2020 Fall Risk: Do You Feel Unsteady When Standing Or Walking? Yes Information not available 05/21/2020 We Know That How And When People Interact With Friends And Family Can Be Very Different From Person To Person. How Often Do You Have The Opportunity To See Or Talk To People That You Care About And Feel Close To? (Ex: Talking To Friends On The Phone Or Visiting Friends Or Family Or Going To Synagogue Or Club Meetings) 3 Or 4 Times Per Week Information not available 05/21/2020 Excessive Alcohol Or Drug Use No Information not available 05/21/2020 We Know From Many Of Our Patients That Covering All Of Their Costs Can Be Difficult At Times. This Can Cause Stress And Impact Health. In The Past Year, Have You Been Unable To Get Any Of The Following When It Was Really Needed? No Information not available 05/21/2020 What Is Your Housing Situation Today? I Have Housing Information not available 05/21/2020 Would You Like Help Connecting To Resources? None Information not available 05/21/2020 Sex: Unknown Functional Status None recorded. Mental Status None recorded. Family History Relationship Description Onset Age of this Age Resolved Age Notes LastModified by Organization Details LastModified Time Father Hypertensive disorder [email or web address] Not available 05/21 19:38:32 Medical History Condition Response Diabetes N Coronary Artery Disease N High Cholesterol Y Pulmonary Embolism N Cancer N Hypertension Y Stroke N Asthma N COPD N Depression Y Kidney Disease N Gynecological HistoryNo gynecological history recorded. Obstetrics History GPAL:G 0 P 0 0 0 0 Past Encounters Encounter ID Performer Location Encounter Start Date Encounter Closed Date Diagnosis/Indication Diagnosis SNOMED-CT Code Diagnosis ICD10 Code Diagnosis IMO Codes Diagnosis Note [id number] AMARA SHANKS NP [facility] [address] [place] [address] 05/21/2020 19:28:20 05/26/2020 11:47:35 Low back strain 216574845 S39.012A Pain of ri ght hip joint 9779289980 87167 M25.551 Fall from bed W 06.XXXA Health Concerns Section Related Observation LastModified by Organization Detai ls LastModified Time None Recorded Concern Status LastModified by Organization Details LastModified Time None Recorded Advance Directives Directive Y: Payers Insurance Date Sequence Insurance Name Policy Number Policy Billings Covered Member ID Billings Member ID Guarantor Name 05/21/2020 1 [place]: [email or web address] Christa Camp Bourguignon [id number] Christa Bourguignon 05/21/2020 2 [employer] ( SUPPLEMENT) Lisandro Bourguignon [id number] Christa Bourguignon 05/21/2020 2 [employer] ( SUPPLEMENT) Lisandro Bourguignon [id number] Christa Bourguignon 05/21/2020 1 *SELF PAY* Christa Bourguignon [id number] Christa Bourguignon 05/21/2020 1 MEDICARE [place]: [facility] [employer] Christa Camp Bourguignon [id number] Christa Bourguignon Notes Date Note Type Note Provider Name and Address Organization Details Recorded Time 05/21/2020 text/html General HPI Template - DHReported by Patient Pt fell out of bed last week. She has been having back pain since then. Pt has been able to get up out of bed. Pt reports feeling uncomfortable at time of visit while in bed. Pt is reporting pain mostly to the right hip and buttock. She is able to walk and weighbare but has pain while doing it. AMARA SHANKS, FAM [address], [place], [address], [place] [facility] 05/21/2020 20:25:16 OBGyn Episode No OBEpisode recorded.
[2025-07-25] MEDS: Potassium Chloride ER 20 MEQ TAB.ER.PRT 40 MEQ PO (18:20)
[2025-07-25] MEDS: iohexoL 350 MG/ML 100 ML INFUS..BTL IV (19:29)
[2025-07-25 20:03] VITALS: BP 131/62; PULSE 74; TEMP 36.5; O2SAT 92
[2025-07-25 20:43] LABS: Appearance Urine Clear; Glucose Urine UA Negative (Negative); PH 7.0 (5.0-9.0); Specific Gravity - Urine 1.020 (1.005-1.025); UMIC TRIGGER UACC YES
[2025-07-25 20:48] LABS: UACC Culture Trigger YES
== END 2025-07-25 22:06 | disposition home or self-care (01) ==
PROVIDERS: Physician Assistant Medical; Emergency Provider Emergency Medicine; PCP Family Medicine
DX: M54.16 Radiculopathy, lumbar region (principal); N39.0 Urinary tract infection, site not specified; R10.813 Right lower quadrant abdominal tenderness; Z79.899 Other long term (current) drug therapy; Z91.81 History of falling
CPT/HCPCS: 36415; 74177; 80048; 80076; 81001; 83690; 83735; 85025; 87086; 96374; 96375; 99284; 99285; J1171; J2270; J2405; Q9967

== ENCOUNTER → 2025-07-25 17:59 | Outpatient (BNV) | payer MEDICARE, OTHER, SELFPAY | PROVIDERS: Emergency Provider Emergency Medicine; PCP Family Medicine; Visit Provider Student in an Organized Health Care Education/Training Program | DX: M54.50 Low back pain, unspecified (principal); R10.31 Right lower quadrant pain | CPT/HCPCS: 74177 ==